=== PATIENT | female | born 1955 | race Caucasian/White ===

== ENCOUNTER 2019-07-03 15:47 | Emergency (ER) | payer OTHER, SELFPAY ==
[2019-07-03 15:49] VITALS: BP 131/67; PULSE 77; RESP 20; TEMP 36.2; O2SAT 100
--- NOTE | 2019-07-03 16:31 | ED.URI ---
HPI - URI/Sore Throat General Chief Complaint: Upper Respiratory Infection Stated Complaint: UPPER RESP SYMPTOMS Time Seen by Provider: 07/03/19 16:31 Source: patient and RN notes reviewed Mode of arrival: other Limitations: no limitations History of Present Illness HPI Narrative: Pt is a 63 y/o female who presents to the ED with c/o a cough that began 4 days ago (06/29/19). Pt went to urgent care yesterday and was prescribed Flonase and Amoxicillin, but she states the medication makes her nauseous and gives her diarrhea. Pt denies being tested for the flu while at urgent care. Pt also reports body aches, fever, and sinus drainage, but denies vomiting. MD elicited complaint: cough Pertinent past history: COPD Onset (ago): day(s) (4) Consistency: constant Able to tolerate fluids by mouth: Yes Relieving factors: nothing Associated symptoms: fever, myalgias and other (sinus drainage) Related Data Allergies Allergy/AdvReac Type Severity Reaction Status Date / Time No Known Allergies Allergy Mild Verified 03/03/10 15:25 Review of Systems Review of Systems: All systems reviewed & are unremarkable except as noted in HPI and below Constitutional: Constitutional: Reports fever(s) ENT: Reports other (sinus drainage) Respiratory: Respiratory: Reports cough Gastrointestinal: Gastrointestinal: Denies vomiting Musculoskeletal: Musculoskeletal: Reports myalgias PMFSH Past Medical History Medical History (Updated 07/03/19 @ 16:50 by Marnie Clay MD) COPD (chronic obstructive pulmonary disease) Surgical History Surgical History (Updated 07/03/19 @ 16:35 by Nenita Peter) History of hysterectomy Social History Social History (Updated 07/03/19 @ 16:35 by Nenita Peter) Smoking packs per day: 1 Smoking cigarettes per day: 20.0 Smoking status: Current every day smoker Tobacco type: cigarettes Exam Narrative: Exam Narrative: GENERAL: Well-appearing, well-nourished, and in no acute distress. HEAD: Normocephalic, atraumatic EYES: PERRLA and EOMI, conjunctiva clear without discharge EARS: TM's clear bilaterally without erythema or dullness NOSE: Nares clear, no rhinorrhea or epistaxis THROAT:Mucous membranes moist, Oropharynx normal without erythema, exudate, peritonsillar swelling or fluctuance NECK: Supple, without lymphadenopathy or mass RESPIRATORY: No respiratory distress, Airway patent, Respirations non-labored, Clear to auscultation without rales, rhonchi or wheeze HEART: Regular rate and rhythm. No murmur heard. Normal peripheral pulses. ABDOMEN: Soft, nontender, nondistended, normal active bowel sounds. No masses. No rebound or guarding, No organomegaly. EXTREMITIES: No edema, normal strength with full range of motion. SKIN: Warm, dry, normal color without rash NEURO: Alert and oriented x3. CN 2-12 grossly intact. No focal deficits. PSYCH: Normal mood and affect. Course Course Emergency Course: Patient presented with 5 days of flu symptoms. I discussed that she has the flu and she does not need antibiotics. She understands that it is symptomatic treatment. I discussed treatment with tamiflu. Vital Signs Vital signs: Vital Signs Temperature 97.2 F L 07/03/19 15:49 Pulse Rate 77 07/03/19 15:49 Respiratory Rate 20 07/03/19 15:49 Blood Pressure 131/67 07/03/19 15:49 Pulse Oximetry 100 07/03/19 15:49 Temperature 97.2 F L 07/03/19 15:49 Pulse Rate 77 07/03/19 15:49 Respiratory Rate 20 07/03/19 15:49 Blood Pressure 131/67 07/03/19 15:49 Pulse Oximetry 100 07/03/19 15:49 MDM - URI/Sore Throat Lab Data Labs: Influenza A Screen Positive Reference Range: Negative Influenza B Screen Negative Reference Range: Negative Discharge Plan Discharge Clinical Impression: Influenza Patient Disposition: Home, Self-Care Condition: Stable Instructions: Influenza (ED), Viral Syndrome (ED)
== END 2019-07-03 17:10 | disposition home or self-care (01) ==
PROVIDERS: Emergency Provider General Practice; PCP Internal Medicine
DX: J10.1 Influenza due to other identified influenza virus with other respiratory manifestations (principal); F17.210 Nicotine dependence, cigarettes, uncomplicated; J44.9 Chronic obstructive pulmonary disease, unspecified
CPT/HCPCS: 87804; 99283

== ENCOUNTER 2020-02-10 14:36 | Emergency (ER) | payer OTHER, SELFPAY ==
[2020-02-10] VITALS (30 sets, daily range): BP systolic 136–167; BP diastolic 48–91; PULSE 63–80; RESP 17–27; TEMP 37.2; O2SAT 94–100
--- NOTE | ~2020-02-10 | XR_ITS ---
EXAMINATION: XR chest 2V DATE: 02/10/2020 15:16 INDICATION: Chest pain and shortness of breath TECHNIQUE: PA and lateral views of the chest are obtained. COMPARISON: None available FINDINGS: The lungs are free of acute opacities. There is no pleural effusion or pneumothorax. The ca rdiomediastinal silhouette is normal. There is moderate thoracic spondylosis. IMPRESSION: 1. No acute cardiopulmonary abnormality. Reviewed, dictated and finalized at location A.
--- NOTE | 2020-02-10 14:47 | ECG_ITS ---
Measurements Intervals [place] Rate: 78 P: 40 VA: 174 QRS: 15 QRSD: 91 T: 53 QT: 370 QTc: 422 Interpretive Statements SINUS RHYTHM NORMAL ECG Electronically Signed On 02-10-2020 20:05:33 CDT by Cody Armstrong D.O.
[2020-02-10 14:55] LABS: Basophils Percent Auto 0.2 % (0.2-1.2); Eosinophils Absolute Auto 0.2 K/mm3 (0-0.3); Hematocrit 42.4 % (37.0-47.0); Immature Granulocyte Absolute 0.03 K/mm3 (0.00-0.031); Immature Granulocyte Percent A 0.3 % (0-0.5); Lymphocytes Absolute Auto 3.91 K/mm3 (0.9-3.2); Lymphocytes Percent Auto 35.7 % (18.3-44.2); Mean Corpuscular Hemoglobin 29.5 pg (26-34); Mean Corpuscular Volume 89.5 fl (80-100); Mean Platelet Volume 11.4 fl (7.4-10.4); Monocytes Absolute Auto 0.8 K/mm3 (0.1-0.6); Neutrophils Percent Auto 54.8 % (45.5-73.1); Platelet Count Result 236 k/mm3 (150-375); Red Blood Count 4.74 M/mm3 (4.2-5.4)
[2020-02-10 15:05] LABS: Partial Thromboplastin Time 27.7 SECONDS (22.3-36.8); Prothrombin Time 12.4 Seconds (11.1-14.7)
[2020-02-10 15:07] LABS: Anion Gap 7 mmol/L (8-16); Blood Urea Nitrogen 17 mg/dL (7-17); Calcium 9.4 mg/dL (8.4-10.2); Carbon Dioxide 27 mmol/L (22-30); Chloride 108 mmol/L (98-107); Estimated CRCL calculation 64 ml/min; Estimated Glomerular Filt Rate 56; Glucose 107 mg/dL (65-105); Potassium 4.3 mmol/L (3.4-5.0); Sodium 142 mmol/L (137-145)
[2020-02-10] MEDS: ASPIRIN 81 MG CHEWABLE TABLET 324 MG PO (15:15)
--- NOTE | 2020-02-10 15:15 | PC.NURSE ---
MIGEL Shirley at bedside for assessment.
[2020-02-10 15:19] LABS: Troponin I < 0.012 ng/mL (0.000-0.034)
--- NOTE | 2020-02-10 15:21 | ED.CHESTPAIN ---
HPI - Chest Pain General Chief Complaint: Chest Pain <RICHMOND Ron Last Filed: 02/10/20 18:55> Stated Complaint: Chest Pain <RICHMOND Ron Last Filed: 02/10/20 18:55> Time Seen by Provider: 02/10/20 14:44 <RICHMOND Ron Last Filed: 02/10/20 18:55> Source: patient <RICHMOND Ron Last Filed: 02/10/20 18:55> Mode of arrival: ambulatory <RICHMOND Ron Last Filed: 02/10/20 18:55> Limitations: no limitations <RICHMOND Ron Last Filed: 02/10/20 18:55> History of Present Illness HPI narrative: This is a 64 year old female that presents to the ER for intermittent left sided chest pain since this morning. Reports they started when she was resting. The pains are intermittent and sharp. Does report some relief with ibuprofen. Reports lower extremity edema as well which has been ongoing for some time. Denies fever, cough, shortness of breath. <RICHMOND Ron Last Filed: 02/10/20 18:55> Related Data Home Medications: Home Medications Medication Instructions Recorded Confirmed albuterol sulfate 1 inh INHALATION QID PRN 02/10/20 amlodipine 5 mg PO DAILY 02/10/20 cyclobenzaprine 10 mg PO TID PRN 02/10/20 fluticasone propionate [Flonase 1 spray INTRANASAL DAILY 02/10/20 Allergy Relief] lisinopril 40 mg PO DAILY 02/10/20 meloxicam 7.5 mg PO DAILY 02/10/20 <RICHMOND Ron Last Filed: 02/10/20 18:55> Allergies/Adverse Reactions: Allergies Allergy/AdvReac Type Severity Reaction Status Date / Time No Known Allergies Allergy Mild Verified 03/03/10 15:25 <RICHMOND Ron Last Filed: 02/10/20 18:55> Review of Systems Review of Systems: Narrative: CONSTITUTIONAL: Denies fever CARDIOVASCULAR: Reports chest pain, and edema. RESPIRATORY: Denies cough or dyspnea. <Sharron Christian PA-C - Last Filed: 02/10/20 18:55> All systems reviewed & are unremarkable except as noted in HPI and below <Sharron Christian PA-C - Last Filed: 02/10/20 18:55> [facility] Past Medical History Medical History: Medical History (Updated 02/11/20 @ 00:00 by Arlyn Guallpa) COPD (chronic obstructive pulmonary disease) History of hypertension <Sharron Christian PA-C - Last Filed: 02/10/20 18:55> Surgical History Surgical History: Surgical History (Updated 07/03/19 @ 16:35 by Nenita Peter) History of hysterectomy <RICHMOND Ron Last Filed: 02/10/20 18:55> Social History Social History: Social History (Updated 07/03/19 @ 16:35 by Nenita Peter) Smoking packs per day: 1 Smoking cigarettes per day: 20.0 Smoking status: Current every day smoker Tobacco type: cigarettes Gender identity (if verbalized by the patient): Female <Sharron Christian PA-C - Last Filed: 02/10/20 18:55> Exam Narrative: Exam Narrative: GENERAL: Well-appearing, obese, and in no acute distress. HEAD: Normocephalic, atraumatic. EYES: EOMI. NECK: Supple. No adenopathy or masses. No carotid bruits or JVD CHEST: Clear to auscultation. No respiratory distress. No wheezes rales or rhonchi. Tender to palpation of the left upper chest wall HEART: Regular rate and rhythm. No murmur heard. Normal peripheral pulses. EXTREMITIES: Normal range of motion. No edema. Normal DP pulses SKIN: Warm, dry, no rash. NEURO: No focal deficits. Alert and oriented x3. PSYCH: Normal mood and affect <RICHMOND Ron Last Filed: 02/10/20 18:55> Course Vital Signs Vital signs: Vital Signs Temperature 37.2 C 02/10/20 14:40 Pulse Rate 80 02/10/20 14:40 Respiratory Rate 20 02/10/20 14:40 Blood Pressure 167/90 H 02/10/20 14:40 Pulse Oximetry 100 02/10/20 14:40 Temperature 37.2 C 02/10/20 14:40 Pulse Rate 74 02/10/20 19:13 Respiratory Rate 18 02/10/20 19:13 Blood Pressure 150/64 H 02/10/20 19:13 Pulse Oximetry 97 02/10/20 19:13 <Sharron Christian PA-C - Last Filed: 0
[2020-02-10 15:36] LABS: D Dimer 0.48 ug/mL (<0.48)
[2020-02-10 18:22] LABS: Troponin I < 0.012 ng/mL (0.000-0.034)
== END 2020-02-10 19:14 | disposition home or self-care (01) ==
PROVIDERS: Physician Assistant; Emergency Provider Emergency Medicine; PCP Internal Medicine
DX: R07.9 Chest pain, unspecified (principal); J44.9 Chronic obstructive pulmonary disease, unspecified; I10 Essential (primary) hypertension; F17.210 Nicotine dependence, cigarettes, uncomplicated
CPT/HCPCS: 36415; 71046; 80048; 84484; 85025; 85380; 85610; 85730; 93005; 99284; A9270

== ENCOUNTER 2020-04-05 11:52 | Emergency (ER) | payer OTHER, SELFPAY ==
--- NOTE | ~2020-04-05 | CT_ITS ---
EXAMINATION: CT abdomen pelvis w con EXAM DATE: 04/05/2020 13:28 INDICATION: Low abdominal pain. TECHNIQUE: Spiral CT of the abdomen and pelvis was performed following intravenous injection of 100 m L Omnipaque 350. Axial, coronal and sagittal images were reviewed. The dose-length product (DLP) fo r this examination was 1292.12 mGy-cm. The exposure was tailored according to patient size (auto mA exposure control), and iterative reconstruction (ASIR) was used as additional dose reduction techniqu e. There is no prior study for comparison. FINDINGS: The liver, spleen, adrenal glands and pancreas are unremarkable. There are gallstones with in an otherwise unremarkable gallbladder. No evidence of obstructive biliary disease. Portal and sp lenic veins are patent. Kidneys enhance symmetrically. There is no hydronephrosis. The uterus is not identified and has likely been surgically resected. There is a 4.6 cm left renal cyst. The bladd er is unremarkable. There is no retroperitoneal or pelvic lymphadenopathy. The appendix is normal. The stomach and small bowel are unremarkable. There is expected amount of c olonic stool. No free intraperitoneal gas. The heart is normal in size. There are no pericardial or pleural effusions. The lung bases are unremarkable. The bones are unremarkable. IMPRESSION: 1. No acute intra-abdominal findings. 2. Cholelithiasis. Otherwise unremarkable gallbladder. Reviewed, dictated and finalized at location A. [employer]
[2020-04-05 12:03] VITALS: BP 170/72; PULSE 89; RESP 18; TEMP 36.3; O2SAT 94
[2020-04-05 12:33] LABS: Basophils Percent Auto 0.4 % (0.2-1.2); Eosinophils Absolute Auto 0.3 K/mm3 (0-0.3); Eosinophils Percent Auto 2.4 % (0-4.4); Hematocrit 41.8 % (37.0-47.0); Hemoglobin 13.9 g/dL (12.0-15.0); Immature Granulocyte Absolute 0.02 K/mm3 (0.00-0.031); Immature Granulocyte Percent A 0.2 % (0-0.5); Lymphocytes Absolute Auto 4.09 K/mm3 (0.9-3.2); Lymphocytes Percent Auto 36.1 % (18.3-44.2); Mean Corpuscular HGB Conc 33.3 g/dl (32-36); Mean Corpuscular Hemoglobin 29.3 pg (26-34); Mean Platelet Volume 11.6 fl (7.4-10.4); Monocytes Absolute Auto 0.7 K/mm3 (0.1-0.6); Monocytes Percent Auto 6.3 % (2.6-8.5); Neutrophils Absolute Auto 6.2 K/mm3 (1.3-6.7); Neutrophils Percent Auto 54.6 % (45.5-73.1); Platelet Count Result 259 k/mm3 (150-375); Red Blood Count 4.75 M/mm3 (4.2-5.4); White Blood Count 11.3 K/mm3 (4.5-10.0)
[2020-04-05 12:39] LABS: Add Urine Microscopic? YES; Appearance Urine Clear (Clear); Bilirubin Urine Negative (Negative); Blood Urine 1+ (Negative); Color Urine Straw (Yellow); Glucose Urine UA Negative (Negative); Ketones Urine Negative (Negative); Leukocyte Esterase Ur Negative LEU/UL (Negative); Mucus Urine Rare /lpf; Nitrate Urine Negative (Negative); Protein Urine Negative (Negative); RBC Urine 0-2 /hpf (0-2); Specific Grav Ur 1.013 (1.001-1.035); Squamous Epithelial Cell Urine Moderate /hpf (Few); Urobilinogen Urine Negative mg/dL (<2.0); WBC Urine 0-3 /hpf
[2020-04-05 12:49] LABS: Anion Gap 5 mmol/L (8-16); Blood Urea Nitrogen 19 mg/dL (7-17); Calcium 9.5 mg/dL (8.4-10.2); Carbon Dioxide 32 mmol/L (22-30); Chloride 106 mmol/L (98-107); Estimated CRCL calculation 61 ml/min; Estimated Glomerular Filt Rate 56; Glucose 110 mg/dL (65-105); Potassium 3.8 mmol/L (3.4-5.0); Sodium 143 mmol/L (137-145)
--- NOTE | 2020-04-05 14:10 | ED.GENADULT ---
HPI - General Adult General Chief complaint: Abdominal Pain Stated complaint: kidney infection Time Seen by Provider: 04/05/20 12:39 History of Present Illness HPI narrative: Patient is a 64-year-old female who presents ER with bilateral flank pain. Ongoing for last week. Sharp and achy and last for less than a minute and occurs intermittently. It is not at the CVA region but more lateral towards the posterior mid axillary line bilaterally inferior to the ribs. Denies urinary symptoms but has been started on antibiotics for possible UTI earlier in the week. Patient also reports some lower abdominal cramping without diarrhea/nausea/vomiting. No sweats or chills. Has not found any alleviating factors. Denies injury. Related Data Home Medications Medication Instructions Recorded Confirmed albuterol sulfate 1 inh INHALATION QID PRN 02/10/20 04/05/20 amlodipine 5 mg PO DAILY 02/10/20 04/05/20 fluticasone propionate [Flonase 1 spray INTRANASAL DAILY 02/10/20 04/05/20 Allergy Relief] lisinopril 40 mg PO DAILY 02/10/20 04/05/20 meloxicam 7.5 mg PO DAILY 02/10/20 04/05/20 Allergies Allergy/AdvReac Type Severity Reaction Status Date / Time No Known Allergies Allergy Mild Verified 04/05/20 12:16 Review of Systems Review of Systems: All systems reviewed & are unremarkable except as noted in HPI and below Constitutional: Constitutional: Denies chills, Denies fever(s) and Denies weakness ENT: Denies nasal congestion and Denies sore throat Gastrointestinal: Gastrointestinal: Reports abdominal pain, Denies diarrhea, Denies nausea and Denies vomiting Genitourinary: Genitourinary: Denies nocturia, Denies dysuria and Reports flank pain [facility] Past Medical History Medical History (Updated 04/05/20 @ 14:14 by Mina Corona MD) COPD (chronic obstructive pulmonary disease) History of hypertension Surgical History Surgical History (Updated 07/03/19 @ 16:35 by Nenita Peter) History of hysterectomy Social History Social History (Updated 07/03/19 @ 16:35 by Nenita Peter) Smoking packs per day: 1 Smoking cigarettes per day: 20.0 Smoking status: Current every day smoker Tobacco type: cigarettes Gender identity (if verbalized by the patient): Female Exam Narrative: Exam Narrative: GENERAL: Well-appearing, well-nourished, and in no acute distress. HEAD: Normocephalic, atraumatic. ENT: Mucous membranes moist. CHEST: Clear to auscultation. No respiratory distress. HEART: Regular rate and rhythm. Normal peripheral pulses. ABDOMEN: Soft, mild bilateral lower lower quadrant abdominal pain without guarding, nondistended. No CVA tenderness Back: No midline tenderness of thoracic or lumbar spine nor is or tenderness of the paraspinal musculature. EXTREMITIES: Normal range of motion. No edema. SKIN: Warm, dry, no rash. NEURO: Alert and oriented x3. Course Course Emergency Course: Unremarkable evaluation. We will treat his muscle cramps/aches. Discharge home. Vital Signs Vital signs: Vital Signs Temperature 97.4 F L 04/05/20 12:03 Pulse Rate 89 04/05/20 12:03 Respiratory Rate 18 04/05/20 12:03 Blood Pressure 170/72 H 04/05/20 12:03 Pulse Oximetry 94 04/05/20 12:03 Temperature 97.4 F L 04/05/20 12:03 Pulse Rate 89 04/05/20 12:03 Respiratory Rate 18 04/05/20 12:03 Blood Pressure 170/72 H 04/05/20 12:03 Pulse Oximetry 94 04/05/20 12:03 Medical Decision Making Vital Signs Vital Signs: Vital Signs Temperature 97.4 F L 04/05/20 12:03 Pulse Rate 89 04/05/20 12:03 Respiratory Rate 18 04/05/20 12:03 Blood Pressure 170/72 H 04/05/20 12:03 Pulse Oximetry 94 04/05/20 12:03 Temperature 97.4 F L 04/05/20 12:03 Pulse Rate 89 04/05/20 12:03 Respiratory Rate 18 04/05/20 12:03 Blood Pressure 170/72 H 04/05/20 12:03 Pulse Oximetry 94 04/05/20 12:03 Lab Data Result diagrams: 04/05/20 12:24 04/05/20 12:24
[2020-04-05 14:58] VITALS: BP 162/88; PULSE 74; RESP 20; O2SAT 98
== END 2020-04-05 15:02 | disposition home or self-care (01) ==
PROVIDERS: Emergency Provider Emergency Medicine; PCP Internal Medicine
DX: R25.2 Cramp and spasm (principal); K80.20 Calculus of gallbladder without cholecystitis without obstruction; J44.9 Chronic obstructive pulmonary disease, unspecified; I10 Essential (primary) hypertension; F17.210 Nicotine dependence, cigarettes, uncomplicated
CPT/HCPCS: 36415; 74177; 80048; 81001; 85025; 99284; Q9967

== ENCOUNTER 2024-08-22 09:21 | Outpatient (CLI) | payer MEDICARE, MEDICAID, SELFPAY ==
--- OUTSIDE RECORDS SUMMARY | 2024-08-22 10:20 | XMS_ITS | Data Portability ---
Author Organization [facility], Main Office Address [address] [place] [address] Care Team Providers Care Table Saw Operator Name Role Phone CARLOZ MURPHY Primary Care Provider [phone] CARLOZ MURPHY Referring Provider DOLORES LINK [employer]aker Resort ADITI HALLMAN Wire Mill Rover Assessment Encounter Date Assessment Date Assessment LastModified by Organization Details LastModified Time 02/07/2024 02/07/2024 07/27/2022: CBC/TSH/Lipids: WNL CMP: BUN 23, GFR 48, Gluc 110 01/26/2023: A1C 5.7 Gluc 103, BUN 29, ALT 68 Urine microalb 37.3 06/07/2023: Hepatitis panel: Neg BUN 33, GFR 50, ALT 39: Dr Rosado IJ WBC 11.9 10/03/2023: Gluc 107 A1C 5.7, BUN 21, Cr 48 CBC: WNL Urine micor alb 17.2 02/01/2024: Urine micro alb 65.9 Gluc 104, Cr 1.29, GFR 41 [place] Not available 02/02/2024 18:34:53 03/07/2024 03/07/2024 Assessment: Nicotine smoke: 1/2 ppd since 1970 (quit 10 years in between) = 22 pack years 5 mm MIGUEL ANGEL nodule Mild ACO Plan: The following were reviewed and explained to the patient: Chest CT 02/21/23 5 mm MIGUEL ANGEL nodule Chest CT 01/26/24 5 mm MIGUEL ANGEL nodule Lab data 07/26/23 equivocal Coccidioides IgG PFT 07/26/23 FEV1 1.92 L (81%), BD 390 mL = 26% Nicotine cessation counseling provided. [place] for quitting nicotine include getting ready, getting support and encouragement, learning new skills and behaviors and being prepared to handle slips. Tips for dealing with cravings provided. Prevention of subsequent illnesses from nicotine addiction discussed. Comorbidities include but are not limited to hypertension, cerebrovascular disease, coronary heart disease, congestive heart failure, hyperlipidemia, COPD/asthma, peptic ulcer disease, esophagitis/gastri tis, and osteoporosis. Therapy options offered include: Quitting by total abstinence Receiving nicotine replacement therapy Undergoing hypnosis Filling a bupropion or varenicline prescription Enrolling in Quit For Life program Registering at [email or web address].swabr Making a call to 7-648-VDAJ-NOW ( ). A strong, clear, personalized message was given to the patient to quit smoking. The patient was urged to set a quit date. We discussed patient's barriers to quitting and I will be of assistance when patient is ready to quit. I encouraged patient to inform friends and family of plans to quit with a request for support. I encouraged the patient to remove all cigarettes from the environment. We reviewed any previous quit attempts and lessons learned from them. I encouraged total abstinence from smoking and advised the patient that drinking alcohol and/or associating with other smokers are associated with failure or relapse. Patient can enroll in [facility]'s smoking cessation class through Anila Mart RN at . Enrollment is free and classes are held every tuesday of the month from 1:30 pm to 2:30 pm at the conference room next to the cafeteria on the ground floor. Patient quit by total abstinence from [id number]. Differential diagnoses for pulmonary nodule: 1. malignant tumor 2. benign tumor 3. inflammatory processes 4. infectious process (viral, atypical bacterial, fungal, atypical mycobacterial) The Fleischner Society pulmonary nodule recommendations below pertain to the follow-up and management of indeterminate pulmonary nodules detected incidentally on CT and are published by the Fleischner Society. The guideline does not apply to lung cancer screening, patients younger than 35 years, or patients with a history of primary cancer or immunosuppression. These recommendations reflect the 2017 revision 4, which supersedes prior versions published in 2005 and 2013. Single solid nodule <6 mm (<100 mm3) *low-risk patients: no routine follow-up required *high-risk patients: optional CT at 12 months (particularly with suspicious nodule morphology and/or upper lobe location) Single solid nodule 6-8 mm (100-250 mm3) *low-risk patients: CT at 6-12 months, then consider CT at 18-24 months *high-risk patients: CT at 6-12 months, then CT at 18-24 months Single solid nodule >8 mm (>250 mm3) *low-risk and high-risk patients: consider CT at 3 months, PET/CT, or tissue sampling Repeat chest CT one week before return. General information on bronchial asthma was covered. Educational video was shown. Peak flow meter usage instructed. Patient's personal best peak flow today is 240 L/min. Patient will monitor peak flow daily at a set time and again when symptoms of chest tightness, cough, dyspnea or wheezing occur. Patient will bring peak flow record to subsequent visits. The color of a traffic light will guide the patient's use of asthma medications: (1) Green means Go Zone. Peak flow: above 80% of personal best. Symptoms: Breathing is good, no cough or wheeze present, patient sleeps through the night and can work and play. Plan: Patient will continue the use of preventative medicine. (2) Yellow means Caution Zone. Peak flow: between 50-80% of personal best. Symptoms: Presence of first signs of a cold, exposure to known trigger, mild wheeze, tight chest and coughing especially night. Plan: Patient will add quick-relief medicine to preventative medicine. (3) Red means Danger Zone. Peak flow: below 50% of personal best. Symptoms: Asthma is getting worse quickly and medicine is not helping, breathing is hard and fast, nose opens widely when breathing, ribs showing when breathing, and patient cannot speak in full sentences. Plan: Patient will get help from a physician immediately. Continue albuterol HFA as needed. The patient does not know how to accurately administer the inhaler. Today, the patient was shown how to take this medication. The proper technique for delivering this medication was instructed. The patient expressed a clear understanding and demonstrated back how to use this medication. Without the proper technique, the patient will not reap the benefits of the treatment as the contents of the inhaler will not reach the lower airways as intended to be. Adherence to therapy is advocated. Nonadherence may lead to treatment failure, further progression of the condition, and other complications. Hospitals admissions are often the result of individuals not taking prescription medications accurately. Alternatively, greater adherence to medication regimens have shown to lower rates of hospitalization and decrease total medical costs in patients with chronic medical conditions. Advocated influenza vaccination annually and pneumonia vaccination LAMBERTO. Advocated weight loss through diet and exercise. Patient's ideal body weight according to height and gender is up to 130 lbs. Encouraged patient to adjust caloric intake to maintain/achieve ideal body weight, emphasizing on fruits, vegetables, whole grains, and fat-free or low-fat products. These include lean meats, poultry, fish, beans, eggs, and nuts and foods that are low in saturated fats, trans-fats, cholesterol, salt (sodium), and glycemic index. Stressed the importance of regular exercise up to the patient's capacity limits. In this case, we recommend 20 min daily walking, 2 days a week of resistance training. Patient to monitor BP daily and bring records to PCP for further management. Follow-up: 1 year, August 2024 [email or web address] Not available 03/07/2024 11:49:04 06/21/2024 06/21/2024 07/27/2022: CBC/TSH/Lipids: WNL CMP: BUN 23, GFR 48, Gluc 110 01/26/2023: A1C 5.7 Gluc 103, BUN 29, ALT 68 Urine microalb 37.3 06/07/2023: Hepatitis panel: Neg BUN 33, GFR 50, ALT 39: Dr Rosado IJ WBC 11.9 10/03/2023: Gluc 107 A1C 5.7, BUN 21, Cr 48 CBC: WNL Urine micor alb 17.2 02/01/2024: Urine micro alb 65.9 Gluc 104, Cr 1.29, GFR 41 06/15/2024: A1C 5.8H [place] Not available 06/21/2024 10:57:24 07/10/2024 07/10/2024 07/27/2022: CBC/TSH/Lipids: WNL CMP: BUN 23, GFR 48, Gluc 110 01/26/2023: A1C 5.7 Gluc 103, BUN 29, ALT 68 Urine microalb 37.3 06/07/2023: Hepatitis panel: Neg BUN 33, GFR 50, ALT 39: Dr Alonzo HAEYS WBC 11.9 10/03/2023: Gluc 107 A1C 5.7, BUN 21, Cr 48 CBC: WNL Urine micor alb 17.2 02/01/2024: Urine micro alb 65.9 Gluc 104, Cr 1.29, GFR 41 06/15/2024: A1C 5.8H 06/27/2024: [facility] Gluc 101, BUN 21, Cr 1.26, GFR 42 45 minutes spent with the patient, labs and d/c summary noted from [facility] [email or web address] Not available 07/10/2024 12:42:57 Plan of Treatment Reminders Order Date Submit Date Provider Last Modified By Organization Details Last Modified Time Details Appointments Any 15 2024 11:00A Cathryn chang MD Not available Not available Not available New Patient 15 2024 01:30P Cathryn Metz MD Not available Not available Not available Lab glycohem oglobin, total, blood [address] (Lab), [address] [place], [address], 07/10/2024 12:50:30 microalb umin, urine [address] (Lab), [address] [place], [address], 07/10/2024 12:50:31 vitamin D, 25-hydro xy, total, serum [address] (Lab), [address] [place], [address], 07/10/2024 12:50:29 lipid panel, serum [address] (Lab), [address] [place], [address], 07/10/2024 12:50:29 CBC w/ auto diff [address] (Lab), [address] [place], [address], 07/10/2024 12:50:29 TSH, serum or plasma [address] (Lab), [address] [place], [address], 07/10/2024 12:50:30 CMP, serum or plasma [address] (Lab), [address] [place], [address], 07/10/2024 12:50:30 glycohem oglobin, total, blood 2024 025 [facility] (Lab), [address] [place], [address], 06/21/2024 18:20:35 microalb umin, urine 2024 025 [facility] (Lab), [address] [place], [address], 07/27/2024 16:54:15 vitamin D, 25-hydro xy, total, serum 2024 025 [facility] (Lab), [address] [place], [address], 06/21/2024 18:20:36 lipid panel, serum 2024 025 [facility] (Lab), [address] [place], [address], 06/21/2024 18:20:36 CBC w/ auto diff 2024 025 [facility] (Lab), [address] [place], [address], 06/21/2024 18:20:35 TSH, serum or plasma 2024 025 [facility] (Lab), [address] [place], [address], 06/21/2024 18:20:35 CMP, serum or plasma 2024 025 [facility] (Lab), [address] [place], [address], 06/21/2024 18:20:36 glycohem oglobin, total, blood [address] (Lab), [address] [place], [address], 08/08/2024 08:39:02 microalb umin, urine [address] (Lab), [address] [place], [address], 08/08/2024 08:39:03 lipid panel, serum [address] (Lab), [address] [place], [address], 08/08/2024 08:39:02 CBC w/ auto diff [address] (Lab), [address] [place], [address], 08/08/2024 08:39:02 TSH, serum or plasma [address] (Lab), [address] [place], [address], 08/08/2024 08:39:02 CMP, serum or plasma [address] (Lab), [address] [place], [address], 08/08/2024 08:39:02 vitamin D, 25-hydro xy, total, serum 2023 024 [email or web address] [facility] ([facility]), [address], [place], [address], 08/08/2024 08:39:02 Referral nephrolo gist referral - Please call patient to schedule an appointm ent. Thank you. 2024 025 ZEN Rosado MD (Nephrology, [address], [address], [place], [address], 07/11/2024 09:35:[address] referral - Please call patient to schedule an appointm ent. Thank you. 2024 025 CARLENE Pino DPM, [address] [facility], [address], [place], [address], 07/11/2024 09:30:46 cardiolo gist referral - Please call patient to schedule an appointm ent. Thank you. 2024 025 ZEN Hallman MD, [address] [facility], [address], [place], [address], 07/11/2024 10:25:[address] referral - Please call patient to schedule an appointm ent. Thank you. 2024 025 [email or web address] Amirah Metz MD, [address], [address], [place], [address], 07/11/2024 09:21:[address] referral - Please call patient to schedule an appointm ent. Thank you. 2024 025 [email or web address] Pino DPM, [address] [facility], [address], [place], [address], 08/21/2024 08:51:56 cardiolo gist referral - Please call patient to schedule an appointm ent. Thank you. 2024 025 Aditi Hallman MD, [address], [address], [place], [address], 08/08/2024 08:55:[address] referral - Please call patient to schedule an appointm ent. Thank you. 2024 025 [email or web address] Amirah Metz MD, [address], [address], [place], [address], 08/14/2024 08:42:[address] referral - Please call patient to schedule . 2023 024 [email or web address] Darek Pino DPM, [address], [address], [place], [address], 03/13/2024 13:51:39 nephrolo gist referral 2023 024 [email or web address] Ricky Rosado MD (Nephrology, [address], [address], [place], [address], 02/07/2024 12:41:46 cardiolo gist referral 2023 024 [email or web address] Aditi Hallman MD, [address], [address], [place], [address], 02/07/2024 12:41:47 Procedures colonosc opy screenin g (PROC) - Please call patient to schedule an appointm ent. Thank you. 2024 025 [email or web address] Amirah Metz MD, [address], [address], [place], [address], 07/11/2024 09:23:33 colonosc opy screenin g (PROC) - Please call patient to schedule an appointm ent. Thank you. 2024 025 [email or web address] Amirah Metz MD, [address], [address], [place], [address], 08/13/2024 09:14:28 colonosc opy screenin g (PROC) - Please call patient to schedule . 2023 [email or web address] Metz MD, [address] [facility], [address], [place], [address], 03/13/2024 13:51:15 Surgeries None recorded . Imaging MAMMO, screenin g, digital, bilatera l [address] ([facility]), [address] [place], [address], 02/07/2024 12:38:43 DEXA, axial skeleton [address] ([facility]), [address] [place], [address], 08/08/2024 08:48:14 Medication Orders cycloben zaprine 10 mg tablet 2023 024 [id number], [address], [place], [place], [id number], 04/03/2024 14:54:51 meloxica m 7.5 mg tablet [email or web address] [id number], [address], [place], [place], [id number], 06/21/2024 10:21:09 albutero l sulfate HFA 90 mcg/actu ation aerosol inhaler 2023 024 [facility] #[id number], [address], [place], [place], [id number], 03/07/2024 11:49:38 Patient TargetsNo targets recorded. Patient Instructions Encounter Date Encounter Id Patient Instructions Last Modified By Organization Details Last Modified Time 02/07/2024 [id number] dementia rating scale-2* [email or web address] Not available 02/15/2024 12:13:02 alcohol misuse* [email or web address] Not availabl e 02/15/2024 12:12:47 depression screening* Not available 02/15/2024 12:12:40 multi-dimensiona l health assessment questionnaire* [email or web address] Not available 02/15/2024 12:12:54 advance directives: care instructions [email or web address] Not available 02/07/2024 12:19:28 advance care planning: care instructions [email or web address] Not available 02/07/2024 12:19:29 [place] Advance Directives [email or web address] Not available 02/07/2024 12:19:28 03/07/2024 [id number] complete PFT w/ post bronchodilator spirometry* - Please call patient to schedule. SHANEKA [id number] per payor portal, ref #[id number]. [email or web address] Not available 08/15/2024 17:05:50 Reason for Referral Certified Ski Patroller Referral for Ch ronic kidney disease Referring Physician: Carloz Murphy Internal Medicine, Encounter Date: 02/07/2024 Wire Mill Rover Referral for Co ronary arteriosclerosis Referring Physician: Carloz Murphy Internal Medicine, Encounter Date: 02/07/2024 Content Development Manager Referral for Pred iabetes Please call patient to schedule. Referring Physician: Ac Blount Medicine, Encounter Date: 02/07/2024 Wire Mill Rover Referral for Co ronary arteriosclerosis Please call patient to schedule an appointment. Thank you. Referring Physician: Carloz Murphy Internal Medicine, Encounter Date: 06/21/2024 Content Development Manager Referral for Pred iabetes Please call patient to schedule an appointment. Thank you. Referring Physician: Carloz Murphy Internal Medicine, Encounter Date: 06/21/2024 [employer] [place] Referral for Liver enzymes level above reference range Please call patient to schedule an appointment. Thank you. Referring Physician: Ac [facility], Encounter Date: 06/21/2024 Wire Mill Rover Referral for Co ronary arteriosclerosis Please call patient to schedule an appointment. Thank you. Referring Physician: Carloz Murphy Internal Medicine, Encounter Date: 07/10/2024 Content Development Manager Referral for Pred iabetes Please call patient to schedule an appointment. Thank you. Referring Physician: Carloz Murphy Internal Medicine, Encounter Date: 07/10/2024 [employer] [place] Referral for Liver enzymes level above reference range Please call patient to schedule an appointment. Thank you. Referring Physician: Carloz Murphy Internal Medicine, Encounter Date: 07/10/2024 Certified Ski Patroller Referral for Ch ronic kidney disease Please call patient to schedule an appointment. Thank you. Referring Physician: Carloz Murphy Internal Medicine, Encounter Date: 07/10/2024 Results Created Date Observation Date Name Description Value Unit Range Abnormal Flag Note LastModifiedBy Organization Detail LastModifiedTime 02/01/20 24 02/01/2024 CBC/C OMPLE TE BLD COUNT W/DIF F white blood cells 8.6 x10'3 /uL 4.2-10 .8 Not Available [facility] (Lab) [address] [place], [address], 02/01/2024 14:15:32 02/01/20 24 02/01/2024 CBC/C OMPLE TE BLD COUNT W/DIF F red blood cells 4.64 x10'6 /uL 3.80-5 .20 Not Available [facility] (Lab) [address] [place], [address], 02/01/2024 14:15:32 02/01/20 24 02/01/2024 CBC/C OMPLE TE BLD COUNT W/DIF F hemoglobin 13.3 g/dL 12.0-1 5.6 Not Available [facility] (Lab) [address] [place], [address], 02/01/2024 14:15:32 02/01/20 24 02/01/2024 CBC/C OMPLE TE BLD COUNT W/DIF F hematocrit 41.9 % 35.7-4 5.7 Not Available [facility] (Lab) [address] [place], [address], 02/01/2024 14:15:32 02/01/20 24 02/01/2024 CBC/C OMPLE TE BLD COUNT W/DIF F mean red cell volume 90.3 fL 82.0-9 9.0 Not Available [facility] (Lab) [address] [place], [address], 02/01/2024 14:15:32 02/01/20 24 02/01/2024 CBC/C OMPLE TE BLD COUNT W/DIF F mean red cell hemoglobin 28.7 pg 27.0-3 3.0 Not Available [facility] (Lab) [address] [place], [address], 02/01/2024 14:15:32 02/01/20 24 02/01/2024 CBC/C OMPLE TE BLD COUNT W/DIF F mean RBC HGB concentratio n 31.7 g/dL 31.0-3 6.0 Not Available [facility] (Lab) [address] [place], [address], 02/01/2024 14:15:32 02/01/20 24 02/01/2024 CBC/C OMPLE TE BLD COUNT W/DIF F red cell distribution width 13.1 % 11.8-1 5.5 Not Available [facility] (Lab) [address] [place], [address], 02/01/2024 14:15:32 02/01/20 24 02/01/2024 CBC/C OMPLE TE BLD COUNT W/DIF F platelets 194 x10'3 /uL 150-40 0 Not Available [facility] (Lab) [address] [place], [address], 02/01/2024 14:15:32 02/01/20 24 02/01/2024 CBC/C OMPLE TE BLD COUNT W/DIF F mean platelet volume 12.0 fL 9.0-12 .4 Not Available [facility] (Lab) [address] [place], [address], 02/01/2024 14:15:32 02/01/20 24 02/01/2024 CBC/C OMPLE TE BLD COUNT W/DIF F neutrophils 55.8 % 39.0-7 2.0 Not Available [facility] (Lab) [address] [place], [address], 02/01/2024 14:15:32 02/01/20 24 02/01/2024 CBC/C OMPLE TE BLD COUNT W/DIF F lymphocytes 33.6 % 16.0-4 7.0 Not Available [facility] (Lab) [address] [place], [address], 02/01/2024 14:15:32 02/01/20 24 02/01/2024 CBC/C OMPLE TE BLD COUNT W/DIF F monocytes 7.1 % 5.0-12 .0 Not Available [facility] (Lab) [address] [place], [address], 02/01/2024 14:15:32 02/01/20 24 02/01/2024 CBC/C OMPLE TE BLD COUNT W/DIF F eosinophils 2.7 % 1.0-7. 0 Not Available [facility] (Lab) [address] [place], [address], 02/01/2024 14:15:32 02/01/20 24 02/01/2024 CBC/C OMPLE TE BLD COUNT W/DIF F basophils 0.5 % 0.0-2. 0 Not Available [facility] (Lab) [address] [place], [address], 02/01/2024 14:15:32 02/01/20 24 02/01/2024 CBC/C OMPLE TE BLD COUNT W/DIF F immature granulocytes 0.3 % 0.00-0 .50 Not Available [facility] (Lab) [address] [place], [address], 02/01/2024 14:15:32 02/01/20 24 02/01/2024 CBC/C OMPLE TE BLD COUNT W/DIF F neutrophils, absolute count 4.79 x10'3 /uL 1.5-8. 0 Not Available [facility] (Lab) [address] [place], [address], 02/01/2024 14:15:32 02/01/20 24 02/01/2024 CBC/C OMPLE TE BLD COUNT W/DIF F lymphocytes, absolute count 2.89 x10'3 /uL 1.07-3 .43 Not Available [facility] (Lab) [address] [place], [address], 02/01/2024 14:15:32 02/01/20 24 02/01/2024 CBC/C OMPLE TE BLD COUNT W/DIF F monocytes, absolute count 0.61 x10'3 /uL 0.29-0 .99 Not Available [facility] (Lab) [address] [place], [address], 02/01/2024 14:15:32 02/01/20 24 02/01/2024 CBC/C OMPLE TE BLD COUNT W/DIF F eosinophils, absolute count 0.23 x10'3 /uL 0.02-0 .53 Not Available [facility] (Lab) [address] [place], [address], 02/01/2024 14:15:32 02/01/20 24 02/01/2024 CBC/C OMPLE TE BLD COUNT W/DIF F basophils, absolute count 0.04 x10'3 /uL 0.01-0 .08 Not Available [facility] (Lab) [address] [place], [address], 02/01/2024 14:15:32 02/01/20 24 02/01/2024 CBC/C OMPLE TE BLD COUNT W/DIF F immature granulocytes ,absolute 0.03 x10'3 /uL 0.00-0 .05 Not Available [facility] (Lab) [address] [place], [address], 02/01/2024 14:15:32 02/01/20 24 02/01/2024 CBC/C OMPLE TE BLD COUNT W/DIF F nucleated red blood cells 0.0 % -0 Not Available [facility] (Lab) [address] [place], [address], 02/01/2024 14:15:32 02/01/20 24 02/01/2024 CBC/C OMPLE TE BLD COUNT W/DIF F NRBC# 0.00 x10'3 /uL Not Available [facility] (Lab) [address] [place], [address], 02/01/2024 14:15:32 02/01/20 24 02/01/2024 LIPID PANEL cholesterol 108 mg/dL 140-19 9 low NIH LUIS NSUS RECOM MENDA TION FOR ADELA STERO L: ADULT CHILD LOW RISK: <200 <170 BORDE RLINE : <200- 239 ----- HIGH RISK: >240 >200 Not Available [facility] (Lab) [address] [place], [address], 02/01/2024 14:50:38 02/01/2002/01/2024 LIPID PANEL triglyceride s 116 mg/dL 0-150 NIH LUIS NSUS REPOR T RECOM MENDA TION FOR TRIGL YCERI SPRING: ADULT CHILD LOW RISK: <150 ----- BODER LINE: 150-1 99 ----- HIGH RISK: >200 ----- Not Available [facility] (Lab) [address] [place], [address], 02/01/2024 14:50:38 02/01/20 24 02/01/2024 LIPID PANEL HDL cholesterol 62 mg/dL 40- Not Available [facility] (Lab) [address] [place], [address], 02/01/2024 14:50:38 02/01/20 24 02/01/2024 LIPID PANEL LDL cholesterol, calculated 23 mg/dL 0-130 NIH LUIS NSUS REPOR T RECOM MENDA TIONS FOR LDL: ADULT CHILD LOW RISK <130 <110 (OPTI MAL LDL) <100 ----- BORDE RLINE : 130-1 59 ----- HIGH RISK: >160 >130 A TRIGL YCERI DE RESUL T >400 INVAL IDATE S THE CALCU LATIO N FOR LDL FRACT IONAT ION - THE LDL RESUL T WILL NOT BE REPOR EAGLE. Not Available [facility] (Lab) [address] [place], [address], 02/01/2024 14:50:38 02/01/20 24 02/01/2024 COMPR EHENS GUNJAN METAB OLIC PANEL sodium 140 mmol/ L 137-14 5 Not Available [facility] (Lab) [address] [place], [address], 02/01/2024 14:50:48 02/01/20 24 02/01/2024 COMPR EHENS GUNJAN METAB OLIC PANEL potassium 4.2 mmol/ L 3.5-5. 1 Not Available [facility] (Lab) [address] [place], [address], 02/01/2024 14:50:48 02/01/20 24 02/01/2024 COMPR EHENS GUNJAN METAB OLIC PANEL chloride 109 mmol/ L 98-107 high Not Available [facility] (Lab) [address] [place], [address], 02/01/2024 14:50:48 02/01/20 24 02/01/2024 COMPR EHENS GUNJAN METAB OLIC PANEL carbon dioxide 28 mmol/ L 22-30 Not Available [facility] (Lab) [address] [place], [address], 02/01/2024 14:50:48 02/01/20 24 02/01/2024 COMPR EHENS GUNJAN METAB OLIC PANEL anion gap 7.2 mmol/ L 14-22 low Not Available [facility] (Lab) [address] [place], [address], 02/01/2024 14:50:48 02/01/20 24 02/01/2024 COMPR EHENS GUNJAN METAB OLIC PANEL glucose 104 mg/dL 70-99 high Not Available [facility] (Lab) [address] [place], [address], 02/01/2024 14:50:48 02/01/20 24 02/01/2024 COMPR EHENS GUNJAN METAB OLIC PANEL BUN 16 mg/dL 8-19 Not Available [facility] (Lab) [address] [place], [address], 02/01/2024 14:50:48 02/01/20 24 02/01/2024 COMPR EHENS GUNJAN METAB OLIC PANEL creatinine 1.29 mg/dL 0.66-1 .25 high Not Available [facility] (Lab) [address] [place], [address], 02/01/2024 14:50:48 02/01/20 24 02/01/2024 COMPR EHENS GUNJAN METAB OLIC PANEL GFR 41 Refer ence Range : [place] ge GFR Healt hy Adult : >60 mL/mi n/1.7 3 m2 Chron ic Kidne y Disea se: 15-60 mL/mi n/1.7 3 m2 Kidne y Failu re: <15/m L/min /1.73 m2 www.n iddk. nih.g ov The MDRD study equat ion has not been valid ated in child shauna <18 years of age; pregn ant women ; the elder ly >85 years of age; or in some racia l or ethni c subgr oups, such as Hispa nics. Outsi de the valid ated yulissa eters , estim ated GFR is less accur ate, requi ring clini rikki judgm ent on a case- by-ca se basis . Clini rikki inter preta tion for other races and ages must be made by the clini any. The MDRD study equat ion has not been valid ated for the evalu ation of serum creat inine relat ed to nutri precious l statu s or medic ation usage . For perso ns <18 years of age, a pedia tric GFR calcu lator is avail able on the [facility] websi te: https ://manuel w.kid jamaal.o rg/pr ofess ional s/kdo qi/gf r_cal culat or Not Available [facility] (Lab) [address] [place], [address], 02/01/2024 14:50:48 02/01/20 24 02/01/2024 COMPR EHENS GUNJAN METAB OLIC PANEL alkaline phosphatase 64 U/L 38-126 Not Available [facility] (Lab) [address] [place], [address], 02/01/2024 14:50:48 02/01/20 24 02/01/2024 COMPR EHENS GUNJAN METAB OLIC PANEL alanine aminotransfe rase 30 U/L 0-35 Not Available [facility] (Lab) [address] [place], [address], 02/01/2024 14:50:48 02/01/20 24 02/01/2024 COMPR EHENS GUNJAN METAB OLIC PANEL aspartate aminotransfe rase 27 U/L 15-37 Not Available [facility] (Lab) [address] [place], [address], 02/01/2024 14:50:48 02/01/20 24 02/01/2024 COMPR EHENS GUNJAN METAB OLIC PANEL bilirubin, total 0.70 mg/dL 0.20-1 .30 Not Available [facility] (Lab) [address] [place], [address], 02/01/2024 14:50:48 02/01/20 24 02/01/2024 COMPR EHENS GUNJAN METAB OLIC PANEL calcium 9.6 mg/dL 8.4-10 .2 Not Available [facility] (Lab) [address] [place], [address], 02/01/2024 14:50:48 02/01/20 24 02/01/2024 COMPR EHENS GUNJAN METAB OLIC PANEL total protein 6.8 g/dL 6.3-8. 2 Not Available [facility] (Lab) [address] [place], [address], 02/01/2024 14:50:48 02/01/20 24 02/01/2024 COMPR EHENS GUNJAN METAB OLIC PANEL albumin 3.8 g/dL 3.0-4. 4 Not Available [facility] (Lab) [address] [place], [address], 02/01/2024 14:50:48 02/01/20 24 02/01/2024 COMPR EHENS GUNJAN METAB OLIC PANEL globulin 3.0 g/dL 2.6-4. 2 Not Available [facility] (Lab) [address] [place], [address], 02/01/2024 14:50:48 02/01/20 24 02/01/2024 COMPR EHENS GUNJAN METAB OLIC PANEL A/G ratio 1.3 ratio 1.0-2. 0 Not Available [facility] (Lab) [address] [place], [address], 02/01/2024 14:50:48 02/01/20 24 02/01/2024 TSH W/REF KIMI FT4 TSH with reflex free T4 1.540 uIU/m L 0.465- 4.680 Not Available [facility] (Lab) [address] [place], [address], 02/01/2024 15:23:41 02/01/20 24 02/01/2024 MICRO ALBUM IN RANDO M URINE microalbumin , urine 65.9 mg/L 0.0-16 .6 high Not Available [facility] (Lab) [address] [place], [address], 02/01/2024 15:38:08 02/01/20 24 02/01/2024 VITAM IN D 25-HY DROXY vd25oh 48.6 NG/mL 30-100 Vitam in D Statu s: Defic ient: <20 ng/mL Insuf ficie nt: 20-29 ng/mL Suffi cient : 30-10 0 ng/mL Not Available [facility] (Lab) [address] [place], [address], 02/01/2024 16:16:26 02/01/20 24 02/03/2024 HA1C, SEND- OUT TO [facility] RP hemoglobin A1C 6.0 % 4.8-5. 6 high . . Predi abete s: 5.7 - 6.4 Diabe constantin: >6.4 Glyce brent contr ol for adult s with diabe constantin: <7.0 Perfo rmed at: - [facility] [address] [id number] [facility] Lab Direc tor: Giancarlo colvin PhD, Phone : [phone] Not Available [facility] (Lab) [address] [place], [address], 02/03/2024 07:14:34 01/26/20 24 01/26/2024 CT, chest , w/o contr ast No observ ation record ed. [email or web address] [facility] [address] [place], [address], 01/26/2024 11:30:48 01/26/20 24 01/26/2024 imagi ng/di gioos tic resul t No observ ation record ed. [facility] [address], [place], [address], 01/26/2024 10:54:09 01/26/20 24 01/26/2024 DEXA, axial skele ton [facility] [address] [facility] [address], [place] [address] [phone] Patien t Name: KAMILLE HENDERSON Access ion #: [id number] Sex: F : 1955 6 Dictat ed By: Naun colbert Attend ing Physic alba: GEOFF ESTEBAN Physic alba: OWEN MAHONEY Exam Date: 2023 09:23 AM Exam Name: XR DEXA-H IPS PELVIS SPINE Admitt ing Diagno sis(es ): CLINIC AL HISTOR Y: Postme nopaus al screen ing for osteop orosis . TECHNI QUE: The study was perfor med using a [email or web address] Unit. Lumbar spine and proxim al femora l evalua tions were evalua eagle in the fronta l projec tions. COMPAR LEONELA: XR DEXA-H IPS PELVIS SPINE on DOS: 2 FINDIN GS: L1-L4 demons trates a bone minera l densit y of 1.132 g/cm2 with a T-scor e of -0.5, within normal limits . Left femora l neck evalua tion demons trates a bone minera l densit y of 0.944 g/cm2 with a T-scor e of -0.7, within normal limits . There has been a 1.3% interv al increa se in bone minera l densit y in the lumbar spine compar ed to the prior exam. Right femora l neck evalua tion demons trates a bone minera l densit y of 0.975 g/cm2 with a T-scor e of -0.5 within normal limits . There has been a 0.9% interv al increa se in total mean proxim al femora l bone minera l densit y compar ed to the prior exam. Estima eagle total body fat is 53.3%. BMI is 42. IMPRES VIOLETA: 1. Bone minera l densit y is within the range of normal as detail ed above. 2. Additi onal findin gs as descri bed above. Electr onical ly Signed by: Naun colbert at 2023 07:46: 40 AM Page 1 [facility] [address] [place] [address] Patien t Name: KAMILLE HENDERSON Access ion #: [id number] Sex: F : 1955 6 Dictat ed By: Naun colbert Attend ing Physic alba: HOLLY TELLEZ Physic alba: OWEN MAHONEY Exam Date: 2023 09:23 AM Exam Name: XR DEXA-H IPS PELVIS SPINE Admitt ing Diagno sis(es ): Page 2 INTERFACE [facility] (Imaging) [address] [place], [address], 01/26/2024 10:48:53 01/26/20 24 01/26/2024 DEXA, axial skele ton No observ ation record ed. [facility] [address] [place], [address], 02/29/2024 14:56:34 01/26/20 24 01/26/2024 DEXA, axial skele ton No observ ation record ed. CARLENE [facility] [address] [place], [address], 01/26/2024 10:51:19 01/26/20 24 01/26/2024 scree jelly gross sadiq, bilat [facility] [address] [place] [address] [phone] Patien t Name: KAMILLE HENDERSON Access ion #: [id number] Sex: F : 1955 6 Dictat ed By: Vandana Acosta Attend ing Physic alba: GEOFF ESTEBAN Physic alba: OWEN MAHONEY Exam Date: 2023 09:39 AM Exam Name: MG SCRN BREAST SADIQ BILAT Admitt ing Diagno sis(es ): SCREEN ING MAMMOG LUIS WITH TOMOSY NTHESI S: REASON FOR EXAM: screen ing mammog mike COMPAR LEONELA: MG SCRN BREAST SADIQ BILAT on DOS: 3, MG SCRN BREAST SADIQ BILAT 3D on DOS: 2, SCREEN ING BREAST SADIQ, BILAT 3D on DOS: , DIGITA L MAMM, BILAT SCREEN ING 2D on DOS: 7 TECHNI QUE: Bilate ral CC and MLO views obtain ed. Images were obtain ed using a Digita l Tomosy nthesi s Unit. Standa rd 2D and 3D Tomosy nthesi s images were review ed. FINDIN GS: BREAST COMPOS ITION: A - The bilate ral breast s are almost entire ly fatty. In the right breast , no asymme trical parenc hymal patter n, salinas ectura l distor tion, pleomo rphic microc alcifi cation s or masses . In the left breast , no asymme trical parenc hymal patter n, sal[place] ectura l distor tion, pleomo rphic microc alcifi cation s or masses . IMPRES VIOLETA: No findin gs of malign vidhya. FOLLOW UP RECOMM ENDATI ON: Recomm end annual mammog luis. BIRADS : 2 - Benign Electr onical ly Signed by: Vandaan Acosta at 2023 10:19: 32 AM Page 1 INTERFACE [facility] (Imaging) [address] [place], [address], 01/26/2024 11:20:51 01/26/20 24 01/26/2024 imagi ng/di agnos tic resul t No observ ation record ed. [facility] [address] [place], [address], 01/26/2024 11:22:49 01/26/20 24 01/26/2024 MAMMO , scree jelly, digit al, bilat eral No observ ation record ed. [facility] ([facility] Sched[facility]) [address] [place], [address], 02/29/2024 14:56:51 Result Notes None recorded. Problems Name Problem SNOMED Code Status Onset Date Resolution Date Notes Provider Name and Address Organization Details Recorded Time Osteoarthr itis 266386814 Active 2021 Not Available [facility] 3 05:58:36 Hyperlipid emia 17815693 Active 2021 Not Available [facility] 3 05:58:36 COVID-19 938046964 Active 2021 Not Available [facility] 3 05:58:36 Essential hypertensi on 32754375 Active 2022 Not Available [facility] 3 05:58:36 Coronary arterioscl erosis 95094481 Active 2022 Not Available [facility] 3 05:58:36 Chronic kidney disease 049390154 Active 2022 Not Available [facility] 3 05:58:36 Non-alcoho lic fatty liver 290353774 Active 2022 Not Available [facility] 3 05:58:36 Solitary nodule of lung 745903688 Active 2022 Not Available [facility] 3 05:58:36 Peripheral vascular disease 596403135 Active 2022 Not Available [facility] 3 05:58:36 Venous varices 497218455 Active 2022 Not Available [facility] 3 05:58:36 Smoker 71172471 Active 2023 Carloz chang MD [address] [facility], [place], [address] , [place] [facility] 4 13:15:06 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 4 12:18:01 Hyperglyce kaye 50817953 Active 2023 Carloz chang MD [address], [address], [place], [address] , [facility] 4 12:28:26 Liver enzymes level above reference range 967569330 Active 2023 Carloz chang MD [address], [address], [place], [address] , [facility] 4 12:28:26 Obesity 060404871 Active 2023 Carloz chang MD [address], [address], [place], [address] , [facility] 4 10:53:27 Allergic rhinitis 21317146 Active 2023 Carloz chang MD [address], [address], [place], [address] , [facility] 4 10:53:37 Prediabete s 658528479 Active 2023 Carloz chang MD [address], [address], [place], [address] , [facility] 4 11:24:11 Low back pain 037225743 Active 2023 Carloz chang MD [address], [address], [place], [address] , [facility] 4 14:37:44 Chronic obstructiv e pulmonary disease 66179422 Active 2024 Carloz chang MD [address], [address], [place], [address] , [facility] 5 10:06:50 Pain of right knee joint 4527182418776 00 Active 2024 Carloz chang MD [address], [address], [place], [address] , [facility] 5 10:06:50 Notes:Medical History: COVID infection Rhinitis Eosinophils 230/uL IgE 46 IU/mL AAT PiMM 159 mg% Nicotine use Mild ACO Equivocal Coccidioides IgG 5 mm MIGUEL ANGEL nodule Obesity Hypertension EF 55% Hyperlipidemia CAD Fatty liver Bilateral renal cysts CKD Vit D deficiency OA PVD Varicoces Procedure History: [facility] 1995 Cholecystectomy 2020 Occupational History: Retired [employer] worker Some problems listed in Document: #[id number] could not be added to this patient's chart. Please review this document and add these problems to the patient's chart manually as needed. Problem Notes None recorded. Procedures Surgical History Date Name Laterality Status Provider Name and Address Organization Details Recorded Time 10/04/19 Medicare Wellness CPT Code, subsequent completed Obi Mota LPN [facility] 10/04/2023 08:37:03 10/04/19 24 Advanced Care Planning completed Obi Mota LPN [facility] 10/04/2023 12:21:24 09/07/19 23 Cystoscopy (female) completed Nic Wilson MD [address], [address], [place], [address], [employer] [facility] 09/06/2022 15:46:03 08/04/19 23 Medicare Wellness CPT Code, Initial completed Susan Gutierrez RN [facility] [facility] 08/03/2022 14:42:36 03/19/20 22 Colonoscopy completed NAVDEEP Rodríguez [place] [facility] [facility] 08/03/2022 14:12:51 10/21/19 21 Cholecystectomy completed Not Available [facility] 2022 17:29:54 Hysterectomy completed Not Available [facility] 2022 17:29:54 Imaging Results Imaging Date Name Status LastModified by Organiz ation Details LastModified Time 01/26/2024 CT, chest, w/o contrast completed [email or web address] [place] [address] [address] [place], [address], 01/26/2024 11:30:48 01/26/2024 imaging/diagno stic result active [facility] [address] [place], [address], 01/26/2024 10:54:09 01/26/2024 DEXA, axial skeleton active INTERFACE [facility] (Imaging) [address] [place], [address], 01/26/2024 10:48:53 01/26/2024 DEXA, axial skeleton completed [address] [place], [address], 02/29/2024 14:56:34 01/26/2024 DEXA, axial skeleton active [facility] [address] [place], [address], 01/26/2024 10:51:19 01/26/2024 screening breast sadiq, bilat active INTERFACE [facility] (Imaging) [address] [place], [address], 01/26/2024 11:20:51 01/26/2024 imaging/diagno stic result active [facility] [address] [place], [address], 01/26/2024 11:22:49 01/26/2024 MAMMO, screening, digital, bilateral completed [facility] ([facility] Sched[facility]) [address], [place], [address], 02/29/2024 14:56:51 Procedure Notes None recorded. Medical Equipment None Reported. Allergies Allergen ID Allergen Name Allergen Category Reaction Reaction Severity Criticality Documentation Date Start Date Code Code System Note Provider Name and Address Organization Details Recorded Time 27333 Macrobid medicatio n facial swelling rash Not available Not available Not available 2022 59589 1 RxNorm Not Available [facility] 17:32:13 Medications Name Sig Start Date Stop Date Status Note LastModified by Organization Details LastModified Time cyclobenz aprine 10 mg tablet TAKE 1 TABLET BY MOUTH EVERY DAY NEEDED*u se sparingl y* 2023 active Not Available Not Available Not Avai lable amoxicill in 500 mg capsule TAKE 1 CAPSULE BY MOUTH THREE TIMES DAILY FOR 5 DAYS 03/07 completed Not Available Not Available Not Available nicotine 14 mg/24 hr daily transderm al patch 06/27 completed Not Available Not Available Not Available cetirizin e 10 mg tablet TAKE 1 TABLET BY MOUTH EVERY DAY NEEDED 04/03 completed Not Available Not Available Not Available ibuprofen 800 mg tablet TAKE 1 TABLET BY MOUTH EVERY 6-8 HOURS NEEDED 03/17 completed Not Available Not Available Not Available lisinopri l 20 mg tablet 09/10 completed Not Available Not Available Not Available ondansetr on HCl 4 mg tablet TAKE 1 TABLET BY MOUTH EVERY 8 HOURS 08/03 completed Not Available Not Available Not Available Zithromax Z-Naveen 250 mg tablet TAKE 2 TABLETS (500 MG) BY ORAL ROUTE ONCE DAILY FOR 1 DAY THEN 1 TABLET (250 MG) BY ORAL ROUTE ONCE DAILY FOR 4 DAYS 08/03 completed Not Available Not Available Not Available metronida zole 500 mg tablet active Not Available Not Available No t Available ciproflox acin 250 mg tablet Take 1 tablet every 12 hours by oral route for 2 days. active Not Available Not Available No t Available amlodipin e 5 mg tablet TAKE 1 TABLET BY MOUTH EVERY DAY AROUND THE CLOCK active Not Available Not Available No t Available ciproflox acin 500 mg tablet TAKE 1 TABLET BY MOUTH TWICE DAILY 02/01 completed Not Available Not Available Not Available sulfameth oxazole 800 mg-trimet hoprim 160 mg tablet TAKE 1 TABLET BY MOUTH TWICE DAILY FOR 5 DAYS 03/17 completed Not Available Not Available Not Available triamcino lone acetonide 0.1 % topical cream APPLY SMALL AMOUNT TOPICALL Y TO THE AFFECTED AREA TWICE DAILY 10/29 completed Not Available Not Available Not Available amoxicill in 500 mg tablet TAKE 1 TABLET BY MOUTH EVERY 8 HOURS FOR 7 DAYS 10/03 completed Not Available Not Available Not Available meloxicam 7.5 mg tablet TAKE 1 TABLET BY MOUTH TWICE DAILY NEEDED WITH FOOD 06/21 completed Not Available Not Available Not Available oxycodone -acetamin ophen 5 mg-325 mg tablet TAKE 1 TABLET BY MOUTH EVERY 4 TO 6 HOURS NEEDED 10/28 completed Not Available Not Available Not Available amoxicill in 875 mg tablet 06/27 completed Not Available Not Available Not Available dicyclomi ne 20 mg tablet active Not Available Not Available Not Available Kenalog 10 mg/mL suspensio n for injection In office injectio n administ ered by the provider 08/03 completed [facility]: [phone] 4-20 Not Available Not Available Not Available amlodipin e 10 mg tablet TAKE 1 TABLET BY MOUTH EVERY DAY 03/17 completed Not Available Not Available Not Available cephalexi n 500 mg capsule TAKE 1 CAPSULE BY MOUTH TWICE DAILY 02/01 completed Not Available Not Available Not Available ranitidin e 150 mg tablet 09/10 completed Not Available Not Available Not Available lisinopri l 10 mg tablet 06/27 completed Not Available Not Available Not Available ibuprofen 400 mg tablet 09/10 completed Not Available Not Available Not Available nicotine 21 mg/24 hr daily transderm al patch UNWRAP AND APPLY 1 PATCH TO SKIN ONCE A DAY 2024 active Not Available Not Available Not Avai lable hydrochlo rothiazid e 12.5 mg capsule 06/27 completed Not Available Not Available Not Available cephalexi n 500 mg tablet TAKE 1 TABLET BY MOUTH TWICE DAILY 10/28 completed Not Available Not Available Not Available bisacodyl 5 mg tablet,de layed release TAKE 6 TABLETS BY MOUTH AT 8 AM ON 08/03 completed Not Available Not Available Not Available Q-Tussin DM 10 mg-100 mg/5 mL oral syrup active Not Available Not Available Not Available ergocalci ferol (vitamin D2) 1,250 mcg (50,000 unit) capsule TAKE 1 CAPSULE BY MOUTH ONCE A WEEK active Not Available Not Available No t Available ibuprofen 600 mg tablet TK 1 T PO TID 10/29 completed Not Available Not Available Not Available levofloxa erick 750 mg tablet TAKE ONE TABLET DAILY FOR 10 DAYS 12/05 completed Not Available Not Available Not Available albuterol sulfate HFA 90 mcg/actua tion aerosol inhaler INHALE 1 PUFF BY MOUTH EVERY 4 HOURS NEEDED active Not Available Not Available No t Available lisinopri l 40 mg tablet TAKE 1 TABLET BY MOUTH DAILY DIRECTED active Not Available Not Available No t Available fluticaso ne propionat e 50 mcg/actua tion nasal spray,[employer] [place] 1 spray every day by intranas al route for 90 days. 02/06 completed Not Available Not Available Not Available calcitrio l 0.25 mcg capsule TAKE 1 CAPSULE BY MOUTH EVERY OTHER DAY active Not Available Not Available No t Available naproxen 500 mg tablet TAKE 1 TABLET BY MOUTH TWICE DAILY WITH FOOD 12/10 completed Not Available Not Available Not Available amoxicill in 875 mg-potass ium clavulana te 125 mg tablet TAKE 1 TABLET BY MOUTH TWICE DAILY 06/21 completed Not Available Not Available Not Available amoxicill in 500 mg-potass ium clavulana te 125 mg tablet 12/05 completed Not Available Not Available Not Available nicotine 7 mg/24 hr daily transderm al patch active Not Available Not Available Not Available cyclobenz aprine 5 mg tablet TAKE 1 TABLET BY MOUTH EVERY 8 HOURS NEEDED 02/06 completed Not Available Not Available Not Available rosuvasta tin 40 mg tablet TAKE 1 TABLET BY MOUTH EVERY DAY active Not Available Not Available No t Available bupropion HCl XL 150 mg 24 hr tablet, extended release TAKE 1 TABLET BY MOUTH EVERY DAY DIRECTED 10/29 completed Not Available Not Available Not Available nitrofura ntoin monohydra te/macroc rystals 100 mg capsule 10/29 completed Not Available Not Available Not Available meloxicam 7.5 mg 1 tab once a day 10/29 completed stopped in hosp Not Available Not Available Not Available peg 3350-elec trolytes 236 gram-22.7 4 gram-6.74 gram-5.86 gram solution MIX AND DRINK 1/2 AT 5PM ON 2 AND 1/2 AT 5AM 03/19/2008/03 completed Not Available Not Available Not Available ropivacai ne (PF) 5 mg/mL (0.5 %) injection solution In office injectio n administ ered by the provider 08/03 completed Not Available Not Available Not Available dapaglifl ozin propanedi ol 10 mg tablet TAKE 1 TABLET BY MOUTH DAILY active Not Available Not Available No t Available Farxiga 5 mg tablet TAKE 1 TABLET BY MOUTH EVERY DAY active Not Available Not Available No t Available albuterol sulf 90 mcg/actua tion breath activated powder inhaler,s ensor Inhale 2 puffs every 4 hours by inhalati on route. 10/29 completed Not Available Not Available Not Available Sutab 1.479-0.1 88-0.225 gram tablet TAKE DIRECTED 04/03 completed Not Available Not Available Not Available Paxlovid 150 mg-100 mg tablets in a dose pack (Renal Dose) Take 2 tablets twice a day by oral route for 5 days. 07/26 completed Not Available Not Available Not Available Vitals Date Recorded Body height Body mass index (BMI) Body weight Body temperature Heart rate Systolic blood pressure Diastolic blood pressure Provider Name and Address Organization Details Last Updated DateTime 4 162.56 cm 39.7 kg/m2 726851. 84 g 97.7 [degF] 60 /min 120 mm[Hg] 80 mm[Hg] NAVDEEP Rodríguez [place] [facility] [employer] [facility] 4 11:50:17 Date Recorded Body height Body mass index (BMI) Body weight Body temperature Heart rate Oxygen saturation Oxygen saturation in Arterial blood by Pulse oximetry Systolic blood pressure Diastolic blood pressure Provider Name and Address Organization Details Last Updated DateTime 4 162.56 cm 39.3 kg/m2 220575. 65 g 97.8 [degF] 65 /min 97 % 97 % 122 mm[Hg] 70 mm[Hg] Dennis Diaz CMA [facility] [employer] [facility] 4 11:30:38 Date Recorded Heart rate Respiratory rate Provider N gadiel and Address Organization Details Last Updated DateTime 03/07/2024 65 /min 15 /min Geoff Esteban MD [address], [facility] [address], [place], [address], [facility] [employer] [facility] 03/07/2024 11:59:42 Date Recorded Body height Body mass index (BMI) Body weight Body temperature Heart rate Oxygen saturation Oxygen saturation in Arterial blood by Pulse oximetry Pain severity - 0-10 verbal numeric rating [Score] - Reported Systolic blood pressure Diastolic blood pressure Provider Name and Address Organization Details Last Updated DateTime 4 162.56 cm 38.3 kg/m2 901652. 1 g 97.4 [degF] 71 /min 96 % 96 % 4 120 mm[Hg] 66 mm[Hg] Shani Enriquez MA [facility] [employer] [facility] 4 14:29:46 Date Recorded Body height Body mass index (BMI) Body weight Body temperature Heart rate Systolic blood pressure Diastolic blood pressure Provider Name and Address Organization Details Last Updated DateTime 5 162.56 cm 39.7 kg/m2 450524. 84 g 97.1 [degF] 72 /min 120 mm[Hg] 76 mm[Hg] NAVDEEP Rodríguez [facility] [employer] [facility] 5 10:24:01 Date Recorded Body height Body mass index (BMI) Body weight Body temperature Heart rate Systolic blood pressure Diastolic blood pressure Provider Name and Address Organization Details Last Updated DateTime 5 162.56 cm 39 kg/m2 142510. 47 g 97.2 [degF] 72 /min 122 mm[Hg] 60 mm[Hg] NAVDEEP Rodríguez [facility] 5 12:20:49 Social History Question Answer Notes LastModified by Organizat ion Details LastModified Time Tobacco Smoking Status Current Every Day Smoker TENNILLE Zhou, [facility] [employer] [facility] 04/14/2023 15:28:12 Do You Have An Advance Directive? No MIGRATION.18627 67865 Information not available 2022 What Is Your Level Of Alcohol Consumption? None MIGRATION.73217 76980 Information not available 2022 Do You Wear A Helmet When Biking? No Does Not Bike [email or web address] Information not available 10/04/2023 Are You Blind Or Do You Have Difficulty Seeing? No MIGRATION.66728 00583 Information not available 2022 What Is Your Level Of Caffeine Consumption? Heavy MIGRATION.93143 49229 Information not available 2022 How Much Tobacco Do You Chew? None MIGRATION.79742 45029 Information not available 2022 In The 14 Days Before Symptom Onset, Have You Had Close Contact With A Laboratory-confi rmed COVID-19 While That Case Was Ill? No MIGRATION.38190 99230 Information not available 2022 In The 14 Days Before Symptom Onset, Have You Had Close Contact With A Person Who Is Under Investigation For COVID-19 While That Person Was Ill? No MIGRATION.91604 01681 Information not available 2022 Are You Currently Employed? No Information not available 08/22/2023 Are You Deaf Or Do You Have Serious Difficulty Hearing? No MIGRATION.77644 31232 Information not available 2022 What Type Of Diet Are You Following? REGULAR MIGRATION.12950 16377 Information not available 2022 What Is The Highest Grade Or Level Of School You Have Completed Or The Highest Degree You Have Received? [id number] MIGRATION.78460 82952 Information not available 2022 Do You Have An Electrostatic Air Filter? No Information not available 04/14/2023 Have There Been Any Changes To Your Family Or Social Situation? No MIGRATION.94164 59200 Information not available 2022 What Is The Fluoride Status Of Your Home? Unknown MIGRATION.47350 19749 Information not available 2022 Are There Any Guns Present In Your Home? No MIGRATION.05261 06169 Information not available 2022 Do You Have A Humidifier? No Information not available 04/14/2023 Do You Use Insect Repellent Routinely? No MIGRATION.98751 35934 Information not available 2022 Where Do You Live? Apartment Information not available 08/03/2022 Presence Of Domestic Violence No Information not available 08/03/2022 Guns Present In The Home? No Information not available 08/03/2022 Are You Able To Care For Yourself? Yes Information not available 08/03/2022 Are You Blind Or Do Yo Have Difficulty Seeing? No Information not available 08/03/2022 Are You Deaf Or Do You Have Serious Difficulty Hearing? No Information not available 08/03/2022 General Stress Level? Low Information not available 08/03/2022 Live Alone Of With Others? Alone Information not available 08/03/2022 Do You Have A Medical Power Of Kiss Machine Operator? No MIGRATION.21933 39127 Information not available 2022 Do You Have Moisture Problems In Your Home? No Information not available 04/14/2023 What Was The Date Of Your Most Recent Tobacco Screening? 06/21/2024 Information not available 06/21/2024 How Many Children Do You Have? 1 Information not available 04/03/2024 What Is Your Current Pack Years? 20-29packyea rs [email or web address] Information not available 10/04/2023 Do You Have Any Pets? Yes MIGRATION.86807 73955 Information not available 2022 What Is Your Relationship Status? MIGRATION.99942 31161 Information not available 2022 Do You Use Your Seat Belt Or Car Seat Routinely? Yes MIGRATION.36339 02639 Information not available 2022 Do You Have Smoke And Carbon Monoxide Detectors In Your Home? Yes MIGRATION.31440 45388 Information not available 2022 At What Age Did You Start Smoking Tobacco? 14 MIGRATION.19922 75548 Information not available 2022 Are You Passively Exposed To Smoke? Yes MIGRATION.26455 46151 Information not available 2022 Are There Any Smokers In Your House? Yes MIGRATION.14546 46429 Information not available 2022 How Much Tobacco Do You Smoke? 1 PPW Smoking Abbout 2-3 Cigarettes Per Day. Was 1/2ppd Information not available 07/10/2024 What Types Of Sporting Activities Do You Participate In? None MIGRATION.79210 43762 Information not available 2022 Do You Feel Stressed (tense, Restless, Nervous, Or Anxious, Or Unable To Sleep At Night)? [id number] MIGRATION.47483 28609 Information not available 2022 Do You Use Any Illicit Or Recreational Drugs? No MIGRATION.81839 28247 Information not available 2022 Do You Use Sunscreen Routinely? Yes Information not available 08/03/2022 Has Tobacco Cessation Counseling Been Provided? Yes Information not available 10/04/2023 On What Date Was Tobacco Cessation Counseling Provided? 10/04/2023 [email or web address] Information not available 10/04/2023 Have You Recently Traveled Abroad? No MIGRATION.21729 48784 Information not available 2022 Do You Have Any Dietary Restrictions? No MIGRATION.81116 73747 Information not available 2022 Do You Or Have You Ever Used Any Other Forms Of Tobacco Or Nicotine? No MIGRATION.82357 05654 Information not available 2022 Sex: Female Functional Status Question Answer Note LastModified by Organizat ion Details LastModified Time Do you have difficulty walking or climbing stairs? No MIGRATION.963865 2633 Information not available 2022 Do you have transportation difficulties? No MIGRATION.070193 4753 Information not available 2022 Are you able to walk? YESWOREST MIGRATION.216615 9380 Information not available 2022 Do you have difficulty doing errands alone? No MIGRATION.766933 4241 Information not available 2022 Are you able to care for yourself? Yes MIGRATION.102968 5723 Information not available 2022 Do you have difficulty dressing or bathing? No MIGRATION.131325 7856 Information not available 2022 What is your exercise level? Occasional stays active MIGRATION.500885 4898 Information not available 2022 Mental Status Question Answer Note LastModified by Organizat ion Details LastModified Time Do you have difficulty concentrating, remembering or making decisions? No MIGRATION.691988861 6 Information not available 2022 Family History Relationship Description Onset Age of this Age Resolved Age Notes LastModified by Organization Details LastModified Time Father Hypertensive disorder MIGRATION.661 [id number] Not available 2022 17:29:55 Father Gout MIGRATION.850 [id number] Not available 2022 17:29:55 Mother Hypercholest erolemia MIGRATION.580 6916339 Not available 2022 17:29:55 Mother Cholecystect jayden gallst ones MIGRATION.062 [id number] Not available 2022 17:29:55 Paternal Grandmother Diabetes mellitus MIGRATION.587 6203512 Not available 2022 17:29:55 Paternal Grandfather Diabetes mellitus MIGRATION.140 [id number] Not available 2022 17:29:55 Unspecified Relation Family history of ischemic heart disease patern al side MIGRATION.517 [id number] Not available 2022 17:29:55 Unspecified Relation Arthritis [employer] Not available 03/17/2023 14:50:58 Unspecified Relation Hypertensive disorder [employer] Not available 03/17/2023 14:51:36 Unspecified Relation Heart disease [employer] Not available 03/17/2023 14:51:53 Father Arthritis Not available 03/17/2023 14:50:58 Mother Hypertensive disorder Not available 2022 14:51:10 Son Asthma [email or web address] Not available 12/2023 11:02:01 Medical History Condition Response NERVE DISEASE N BLINDNESS N RHEUMATIC FEVER N KIDNEY STONES N BLADDER PROBLEMS N MRSA N OTHER # 1 N POLIO N LUNG DISEASE/DISORDER N HISTORY OF DRUG ABUSE N RADIATION / CHEMOTHERAPY N COPD Y Other # 2 N BLOOD DISEASES N EAR OR HEARING PROBLEMS N MUMPS N SHINGLES N BOWEL PROBLEMS N DEPRESSION (INCLUDING POST ) N STROKE/TIA N ULCERS N BENIGN PROSTATIC HYPERPLASIA N MEASLES N HYPOTENSION N MYOCARDIAL INFARCTION N OBESITY N GERD/NAUSEA N ANEURYSM N URINARY/BLADDER/KIDNEY PROBLEMS Y CORONARY ARTERY DISEASE (CAD) N ADDICTION CONCERNS N ENDOMETRIOSIS N Impotence N USE OF BLOOD THINNERS N SKIN PROBLEMS N GASTROINTESTINAL DISORDER N PERIPHERAL VASCULAR DISEASE N MUSCLE,JOINT OR BONE PROBLEMS N GASTROINTESTINAL BLEEDING N BLOOD CLOTS N ASTHMA N CATARACTS N ERECTILE DYSFUNCTION N VARICOSITIES N GI PROBLEMS N Low Testosterone N INFERTILITY N AIDS/HIV N CHEMOTHERAPY / RADIATION N LIVER DISEASE N MALE HYPOGONADISM N HYPERTENSION Y Deficiency N TOURETTE'S N ANXIETY DISORDER N BLOOD TRANSFUSION N ANEMIA/BLOOD DISORDER N CHRONIC EAR INFECTIONS N BRONCHITIS N TUBERCULOSIS N GLAUCOMA N FOOT PROBLEM N DIVERTICULITIS N CHICKENPOX N SLEEP APNEA N INFECTIOUS DISEASE N HEART ARRHYTHMIA N PROSTATE N INSOMNIA N HIGH CHOLESTEROL / HYPERLIPIDEMIA Y HYPERTHYROIDISM N EYE PROBLEMS N EDEMA N CHRONIC PAIN SYNDROME N HYPOTHYROIDISM N CAROTID BLOCKAGE N CONSTIPATION N BACK / NECK PROBLEMS N ATHEROSCLEROSIS N BREAST PROBLEMS N DIALYSIS N ECZEMA N OSTEOPOROSIS N ARTHRITIS Y APPENDICITIS N DIABETES, TYPE N BAD TEETH N ENT N HEARTBURN / REFLUX N AUTISM SPECTRUM DISORDER (ASD) N HEPATITIS / LIVER DISEASE N GOUT N SLEEP DISORDER N ALZHEIMER'S DISEASE N Brain Problems N HERPES N DEMENTIA N HEADACHES/MIGRAINES N SEIZURES/EPILEPSY N VASCULAR DISEASE N PACEMAKER N Blood Disorder N DIZZINESS N HEART DISEASE/HEART PROBLEMS N KIDNEY DISEASE Y MULTIPLE SCLEROSIS N CARDIAC ARRHYTHMIA N CANCER: SPECIFY N ATRIAL FIBRILLATION N Gall Stones Y PULMONARY EMBOLISM N AUTOIMMUNE DISEASE N Gynecological History Statement/Question Response How many live births 1 Date of Last Colonoscopy Date of Last Mammogram Date of LMP Most Recent Bone Density Date of Last Pap Current Control Method Hysterectom y Obstetrics History GPAL:G 1 P 1 0 0 1 Type Value Multiple Births 0 Full Term 1 Induced 0 Spontaneous 0 Premature 0 Living 1 Ectopics 0 Total 1 Immunizations Vaccine Type Date Status Note Provider Nam e and Address Organization Details Recorded Time Pneumococcal conjugate PCV20, polysaccharide [id number] conjugate, adjuvant, PF 3 completed NAVDEEP Rodríguez [facility] 06/21/2024 10:21:30 RSV, bivalent, protein subunit RSVpreF, diluent reconstituted, 0.5 mL, PF 4 completed NAVDEEP Rodríguez [facility] 07/10/2024 12:17:37 COVID-19, mRNA, LNP-S, PF, brian-sucrose, 30 mcg/0.3 mL 4 completed NAVDEEP Rodríguez [facility] 07/10/2024 12:17:37 Influenza, high-dose, trivalent, PF 4 completed NAVDEEP Rodríguez, [facility] 07/10/2024 12:17:37 Influenza, high-dose, quadrivalent, PF 3 completed NAVDEEP Rodríguez [facility] 03/09/2023 17:52:02 Influenza, high-dose, quadrivalent, PF 4 completed NAVDEEP Rodríguez, [place] [facility] [employer] [facility] 03/07/2024 18:02:00 Past Encounters Encounter ID Performer Location Encounter Start Date Encounter Closed Date Diagnosis/Indication Diagnosis SNOMED-CT Code Diagnosis ICD10 Code Diagnosis Note [id number] [facility] General Surgery [address] [facility] [address] [place] [address] 09/11/2020 00:00:00 09/11/2020 13:19:12 [id number] [facility] [address] [facility] [address] [address] 10/28/2020 00:00:00 10/28/2020 12:01:11 [id number] [facility] Internal [facility] [place] [address] [place], [place] [address]., [address] [address] 10/29/2021 00:00:00 11/13/2021 09:50:03 [id number] [facility] [address] [address] 12/10/2021 00:00:00 01/12/2022 19:13:10 [id number] [facility] Internal Med [facility] [address] [place], [place] [address]., [address] [address] 02/02/2022 00:00:00 02/02/2022 14:25:33 [id number] [facility] [address] [address] 03/04/2022 00:00:00 03/04/2022 11:09:33 [id number] Carloz chang MD [facility] Internal Med [facility] [address] [place] [address]., [address] [address] 08/03/2022 13:57:15 08/03/2022 15:08:25 Screening - NAD 468267064 Z13.9 C-scope: Get thisMammog luis: 12/01/2021 : NegPAP: Get this, declines today 02/02/2022 , states that she does not have any uterus and does not want a OB referral, denies any complaints DEXA: 12/01/2021 : Osteopenia , do ca and vit dGet yearly flu shotGet tdap if not doneShould do penumovax vaccineGet shingrixSh ould do COVID 19 vaccine, follow all CDC guidelines RTC in 6 monthsDo labsER if worseShe did verbalize her understand ing of the above Essential hypertension 92180638 I10 On amlodipine 5mg dailyOn lisinopril 40mg dailyGet labs Smoker 16014636 F17.200 LDCT 11/04/2021 : Next in one yearAdvise d to quit!No complaints Coronary arteriosclerosis 98967728 I25.10 Dr Hallman 12/16/2021 : [facility], next in one monthDr Hallman 03/30/2022 : F/u in 3 months 01/07/2022 : Stress test: Neg 022: ECHO: EF 55% Chronic ob structive pulmonary disease 09253271 J44.9 On albuterolO n flonase Chronic ki dney disease 769448111 N18.[address] Alonzo HAYES Pain of ri ght knee joint 8059528214 45000 M25.561 Get a referral to orthoStart on PRN meloxicamD r Yasmin 12/10/2021 Jaron LAINEZ 03/04/2022 Hyperlipidemia 29924568 E78.[address] [facility] [address] Hallman 03/12/2022 , on crestor Hyperglycemia 46988312 R 73.9 Declines medsGet labs [facility] 571710146 Z00.00 Screening for disorder 009878081 Z13.9 Administra tion of pneumococcal vaccine 36804463 Z23 [id number] [facility] [address] [address] 08/10/2022 15:41:20 08/10/2022 16:34:13 Microscopic hematuria 429601437 R31.29 In a smoker, some renal disease, suggested she stop smoking, check stone ct and fu for cysto. [id number] MD [facility] [address] [address] 09/06/2022 15:26:58 09/06/2022 15:54:39 Microscopic hematuria 626852593 R31.[address] , cysto, she needs to stop smoking. [id number] Carloz chang MD [facility] Internal Med [facility] [address] [place] [address] [place] [address] 02/01/2023 14:55:10 02/01/2023 15:20:23 Screening - NAD 180838844 Z13.9 C-scope: Get this Mammogram: 12/01/2021 : NegMammogr am: 12/23/2022 : Neg PAP: Get this, declines today 02/02/2022 , states that she does not have any uterus and does not want a OB referral, denies any complaints DEXA: 12/01/2021 : Osteopenia , do ca and vit d Get yearly flu shotGet tdap if not doneShould do penumovax vaccineGet shingrixSh ould do COVID 19 vaccine, follow all CDC guidelines Get RSV vaccine RTC in 6 monthsDo labsER if worseShe did verbalize her understand ing of the above Essential hypertension 12939676 I10 On amlodipine 5mg dailyOn lisinopril 40mg daily Get labs Smoker 07926736 F17.200 LDCT 11/04/2021 : Next in one year Advised to quit! No complaints Coronary arteriosclerosis 42979061 I25.10 Dr Hallman 12/16/2021 : [facility], next in one monthDr Viji 03/30/2022 : F/u in 3 monthsDr Viji 11/24/2022 : F/u in 6 months 01/07/2022 : Stress test: Neg 022: ECHO: EF 55% Chronic ob structive pulmonary disease 50622394 J44.9 On albuterolO n flonase Chronic ki dney disease 915395360 N18.[address] Alonzo HAYES Pain of ri ght knee joint 7794426664 60117 M25.561 Get a referral to orthoStart on PRN meloxicamD r Yasmin 12/10/2021 Jaron LAINEZ 03/04/2022 Hyperlipidemia 65059011 E78.[address] [facility] [address] Hallman 03/12/2022 , on crestor Hyperglycemia 13375948 R 73.9 Declines medsGet labs Screening for malignant neoplasm of colon 534550628 Z12.11 Liver enzy mes level above reference range 479005802 R74.01 Get hepatitis panel, GGT and US liver done [id number] Darek Pino DPM [facility] [address], [facility] [address] [place] [address] 03/17/2023 14:45:38 03/17/2023 16:04:46 Peripheral vascular disease 190226707 I73.9 obtain noninvasiv e vascular testing secondary to intermitte nt claudicati on without wounds Cigarette smoker 7260855 7 F17.210 educated on side effects of smokingRec ommend discontinu e smokingpac k a day smoker Venous varices 405430840 I83.93 educated on conditionr ecommend for compressio n therapy dailyeleva tion of legs when at restmuscle pumps when at rest [id number] Darek Pino DPM [facility] Podiatry [place] [id number] [facility], [facility] [address] 7 03/31/2023 11:17:38 03/31/2023 12:40:46 Peripheral vascular disease 643511622 I73.9 Ultrasound reviewed with the patientRec ommend daily exerciseCo ntinue supportive shoe gearCheck feet daily for wounds infection to prevent limb lossfollow -up in 1 year Cigarette smoker 4007076 7 F17.210 educated on side effects of smokingRec ommend discontinu e smokingpac k a day smoker Venous varices 426019505 I83.93 educated on conditionr ecommend for compressio n therapy dailyeleva tion of legs when at restmuscle pumps when at rest [id number] Geoff Esteban MD [facility] Pulmonolo gy [address] 15 [place] [address] 04/14/2023 14:52:12 04/14/2023 20:30:28 Dyspnea on exertion 66179469 R06.09 R05.9 T78.40XA D89.9 [id number] Carloz chang MD [facility] Internal Med [facility] [address] [facility] [place] [address] [place] [address] 06/07/2023 15:21:58 06/09/2023 12:33:07 Screening - NAD 747872531 Z13.9 C-scope: Get this, understand s the risks for not doing this test in a timely manner, concern for CRC Mammogram: 12/01/2021 : NegMammogr am: 12/23/2022 : Neg PAP: Get this, declines today 02/02/2022 , states that she does not have any uterus and does not want a OB referral, denies any complaints DEXA: 12/01/2021 : Osteopenia , do ca and vit d Get yearly flu shotGet tdap if not doneShould do penumovax vaccineGet shingrixSh ould do COVID 19 vaccine, follow all CDC guidelines Get RSV vaccine RTC in 6 monthsDo labsER if worseShe did verbalize her understand ing of the above Essential hypertension 80114980 I10 On amlodipine 5mg dailyOn lisinopril 40mg daily Get labs Smoker 90509968 F17.200 LDCT 11/04/2021 : Next in one year Advised to quit! No complaints Coronary arteriosclerosis 45792250 I25.10 Dr Hallman 12/16/2021 : [facility], next in one monthDr Viji 03/30/2022 : F/u in 3 monthsDr Viji 11/24/2022 : F/u in 6 months 01/07/2022 : Stress test: Neg 022: ECHO: EF 55% Chronic ob structive pulmonary disease 17525533 J44.9 On albuterolO n flonase Chronic ki dney disease 667301089 N18.[address] Alonzo HAYES Pain of ri ght knee joint 1971052315 76623 M25.561 Get a referral to orthoStart on PRN meloxicamD r Yasmin 12/10/2021 Jaron LAINEZ 03/04/2022 Hyperlipidemia 30184823 E78.[address] [facility] [address] Hallman On rosuvastat in 40mg daily Hyperglycemia 80182387 R 73.9 Declines medsGet labs Screening for malignant neoplasm of colon 692555273 Z12.11 Liver enzy mes level above reference range 054743410 R74.01 US Liver: 03/03/2023 Get hepatitis panel, GGT and US liver done [id number] Geoff Esteban MD [facility] Pulmonolo gy [place] [address] 08/22/2023 10:01:21 08/22/2023 14:05:24 Solitary nodule of lung 549287677 R91.1 Mild inter mittent asthma 743336905 J45.20 J44.9 [id number] Carloz chang MD [facility] Internal Med [facility] [address] [place], [place] [address] 08/23/2023 11:25:51 08/23/2023 12:43:48 Increased frequency of urination 058670962 R35.0 UA: 08/23/2023 : Chantale smallGet on amoxicilli n 500mg tid for 7 days Screening - NAD 28986572 3 Z13.9 C-scope: Get this, understand s the risks for not doing this test in a timely manner, concern for CRC Mammogram: 12/01/2021 : NegMammogr am: 12/23/2022 : Neg PAP: Get this, declines today 02/02/2022 , states that she does not have any uterus and does not want a OB referral, denies any complaints DEXA: 12/01/2021 : Osteopenia , do ca and vit d Get yearly flu shotGet tdap if not doneShould do penumovax vaccineGet shingrixSh ould do COVID 19 vaccine, follow all CDC guidelines Get RSV vaccine RTC in 4 monthsDo labsER if worseShe did verbalize her understand ing of the above Essential hypertension 85609017 I10 On amlodipine 5mg dailyOn lisinopril 40mg daily Get labs Smoker 66949731 F17.200 LDCT 11/04/2021 : Next in one year Advised to quit! No complaints Coronary arteriosclerosis 52193444 I25.10 Dr Hallman 12/16/2021 : [facility], next in one monthDr Viji 03/30/2022 : F/u in 3 monthsDr Viji 11/24/2022 : F/u in 6 months 01/07/2022 : Stress test: Neg 022: ECHO: EF 55% Chronic ob structive pulmonary disease 28973495 J44.9 On albuterolO n flonase Chronic ki dney disease 257344444 N18.[address] Rosado IJ Pain of ri ght knee joint 0250291096 28751 M25.561 Get a referral to orthoStart on PRN meloxicamD r Yasmin 12/10/2021 Jaron LAINEZ 03/04/2022 Hyperlipidemia 56877310 E78.[address] [facility] [address] Hallman On rosuvastat in 40mg daily Hyperglycemia 97543402 R 73.9 Declines medsGet labs Screening for malignant neoplasm of colon 911804835 Z12.11 Liver enzy mes level above reference range 404566648 R74.01 US Liver: 03/03/2023 Get hepatitis panel, GGT and US liver done Screening mammography 24 176406 Z12.31 Screening for osteoporosis 556565322 Z13.688 [id number] Carloz chang MD [facility] [place] [address] [facility], [place] [address] [place] [address] 10/04/2023 10:25:14 10/04/2023 11:30:45 Screening - NAD 793200758 Z13.9 C-scope: Get this, understand s the risks for not doing this test in a timely manner, concern for CRC Mammogram: 12/01/2021 : NegMammogr am: 12/23/2022 : Neg PAP: Get this, declines today 02/02/2022 , states that she does not have any uterus and does not want a OB referral, denies any complaints DEXA: 12/01/2021 : Osteopenia , do ca and vit d Get yearly flu shotGet tdap if not doneShould do penumovax vaccineGet shingrixSh ould do COVID 19 vaccine, follow all CDC guidelines Get RSV vaccine RTC in 4 monthsDo labsER if worseShe did verbalize her understand ing of the above Essential hypertension 67506463 I10 On amlodipine 5mg dailyOn lisinopril 40mg daily Get labs Smoker 34438409 F17.200 LDCT 11/04/2021 : Next in one year Advised to quit! No complaints Coronary arteriosclerosis 90970595 I25.10 Dr Hallman 12/16/2021 : [facility], next in one monthDr Viji 03/30/2022 : F/u in 3 monthsDr Viji 11/24/2022 : F/u in 6 months 01/07/2022 : Stress test: Neg 022: ECHO: EF 55% Chronic ob structive pulmonary disease 76319988 J44.9 On albuterolO n flonase Chronic ki dney disease 190209114 N18.9 On calcitriol On vit d weekly Sees Dr Rosado IJ Pain of ri ght knee joint 3794523702 92709 M25.561 Get a referral to orthoStart on PRN meloxicamD r Yasmin 12/10/2021 Jaron LAINEZ 03/04/2022 Hyperlipidemia 14227116 E78.[address] [facility] [address] Hallman On rosuvastat in 40mg daily Screening for malignant neoplasm of colon 578764970 Z12.11 Liver enzy mes level above reference range 319919222 R74.01 US Liver: 03/03/2023 Get hepatitis panel, GGT and US liver done Screening mammography 24 913471 Z12.31 Screening for osteoporosis 015174299 Z13.820 Mild inter mittent asthma 540014978 J45.20 Dr Esteban next apt 02/21/2024 PFT 07/26/2023 Adult heal th examination 759438644 Z00.00 Screening for disorder 748339671 Z13.9 Obesity 219022769 E66.9 More diet and exercise, has been binging on sugars, advised to cut back on carbs and sugars, ear heart healthy nuts and beans and proteins Allergic rhinitis 569608 04 J30.9 Will get on zyrtec and flonase, notify if not better Prediabetes 832265657 R7 3.03 Will start on farxiga 5mg daily, more diet and exercise is needed, states that she has been having a lot of milk shakes [id number] Carloz chang MD [facility] [place] [address] [facility], [place] [address] [place] [address] 02/07/2024 11:32:57 02/07/2024 12:33:44 Essential hypertension 70440902 I10 On amlodipine 5mg dailyOn lisinopril 40mg daily Get labs Screening - NAD 29646799 3 Z13.9 C-scope: Get this, understand s the risks for not doing this test in a timely manner, concern for CRC Mammogram: 12/01/2021 : NegMammogr am: 12/23/2022 : NegMammogr am: 01/26/2024 : Neg PAP: Get this, declines today 02/02/2022 , states that she does not have any uterus and does not want a OB referral, denies any complaints DEXA: 12/01/2021 : Osteopenia , do ca and vit dDEXA: 01/26/2024 Get yearly flu shotGet tdap if not doneShould do penumovax vaccineGet shingrixSh ould do COVID 19 vaccine, follow all CDC guidelines Get RSV vaccine RTC in 4 monthsDo labsER if worseShe did verbalize her understand ing of the above Smoker 51024260 F17.200 LDCT 11/04/2021 : Next in one year Advised to quit! No complaints Coronary arteriosclerosis 84207041 I25.10 Dr Hallman 12/16/2021 : [facility], next in one monthDr Viji 03/30/2022 : F/u in 3 monthsDr Viji 11/24/2022 : F/u in 6 months 01/07/2022 : Stress test: Neg 022: ECHO: EF 55% Chronic ob structive pulmonary disease 10171461 J44.9 On albuterolO n flonase Chronic ki dney disease 869064974 N18.9 On calcitriol On vit d weekly Sees Dr Rosado IJ Pain of ri ght knee joint 1042769112 21270 M25.561 Get a referral to orthoStart on PRN meloxicamD r Yasmin 12/10/2021 Jaron LAINEZ 03/04/2022 Hyperlipidemia 50218839 E78.[address] [facility] [address] Hallman On rosuvastat in 40mg daily Screening for malignant neoplasm of colon 147198524 Z12.11 Liver enzy mes level above reference range 848793510 R74.01 US Liver: 03/03/2023 Get hepatitis panel, GGT and US liver done Screening mammography 24 144641 Z12.31 Screening for osteoporosis 126636234 Z13.820 Mild inter mittent asthma 915004262 J45.20 Dr Esteban next apt 02/21/2024 PFT 07/26/2023 Adult [facility] th examination 049451056 Z00.00 Screening for disorder 236620922 Z13.9 Obesity 059968186 E66.9 More diet and exercise, has been binging on sugars, advised to cut back on carbs and sugars, ear heart healthy nuts and beans and proteins Allergic rhinitis 297038 04 J30.9 Will get on zyrtec and flonase, notify if not better Prediabetes 834368182 R7 3.03 Will start on farxiga 5mg daily, more diet and exercise is needed, states that she has been having a lot of milk shakes Solitary n odule of lung 742496219 R91.1 Dr Esteban 08/22/2023 , next 03/07/2024 CT chest 01/26/2024 : CAD [id number] Geoff Esteban MD [facility] Pulmonolo gy [place] [address] 0 03/07/2024 11:12:48 03/08/2024 12:42:50 Solitary nodule of lung 648989531 R91.1 Mild inter mittent asthma 977632669 J45.20 J44.9 [id number] Carloz chang MD [facility] [address] [place] [address] 1 04/03/2024 14:18:39 04/03/2024 14:51:42 Low back pain 703502679 M54.50 Get on flexerill and meloxicam as needed, all side effects explained to herIf not better will notify and then may need to get Xrays and PT or MDPIf worse go to the ERShe is very appreciati ve to this plan of care [id number] Carloz chang MD [facility] [address] [place] [address], [place] [address] 1 06/21/2024 10:15:07 06/21/2024 10:58:55 Low back pain 923289661 M54.50 Get on flexerill and meloxicam as needed, all side effects explained to herIf not better will notify and then may need to get Xrays and PT or MDPIf worse go to the ERShe is very appreciati ve to this plan of care Essential hypertension 47882115 I10 On amlodipine 5mg dailyOn lisinopril 40mg daily Get labs Screening - NAD 13803408 3 Z13.9 C-scope: Get this, understand s the risks for not doing this test in a timely manner, concern for CRC Mammogram: 12/01/2021 : NegMammogr am: 12/23/2022 : NegMammogr am: 01/26/2024 : Neg PAP: Get this, declines today 02/02/2022 , states that she does not have any uterus and does not want a OB referral, denies any complaints DEXA: 12/01/2021 : Osteopenia , do ca and vit dDEXA: 01/26/2024 Get yearly flu shotGet tdap if not doneShould do penumovax vaccineGet shingrixSh ould do COVID 19 vaccine, follow all CDC guidelines Get RSV vaccine RTC in 4 monthsDo labsER if worseShe did verbalize her understand ing of the above Smoker 51356471 F17.200 LDCT 11/04/2021 : Next in one yearAdvise d to quit!No complaints Coronary arteriosclerosis 79634170 I25.10 Dr Hallman 12/16/2021 : [facility], next in one monthDr Viji 03/30/2022 : F/u in 3 monthsDr Viji 11/24/2022 : F/u in 6 monthsDr Viji 06/24/2023 : F/u in one year 01/07/2022 : Stress test: Neg 022: ECHO: EF 55% Chronic ob structive pulmonary disease 99216557 J44.9 On albuterolO n flonase Chronic ki dney disease 745311802 N18.9 On calcitriol On vit d weekly Sees Dr Alonzo HAYES Pain of ri ght knee joint 4256339488 08621 M25.561 Get a referral to orthoStart on PRN meloxicamSusu Hoffman 12/10/2021 Jaron LAINEZ 03/04/2022 Hyperlipidemia [address]9087 E78.[address] Hallman On rosuvastat in 40mg daily Screening for malignant neoplasm of colon 763411707 Z12.11 Liver enzy mes level above reference range 899485245 R74.01 US Liver: 03/03/2023 Sees JOSE Link last OV 09/16/2023 , does not want to see her, will refer to Dr Metz Screening for osteoporosis 314680824 Z13.820 Mild inter mittent asthma 585666281 J45.20 Dr Esteban next apt 02/21/2024 PFT 07/26/2023 Obesity 003425252 E66.9 More diet and exercise, has been binging on sugars, advised to cut back on carbs and sugars, ear heart healthy nuts and beans and proteins Allergic rhinitis 959090 04 J30.9 Will get on zyrtec and flonase, notify if not better Prediabetes 598740695 R7 3.03 On farxiga 5mg daily, more diet and exercise is needed, states that she has been having a lot of milk shakes Solitary n odule of lung 461137660 R91.1 Dr Esteban 08/22/2023 , next 03/07/2024 CT chest 01/26/2024 : CAD [id number] Carloz chang MD [facility] [address] [facility] [address] [place] [address] 07/10/2024 12:10:30 07/10/2024 12:50:41 Low back pain 578478471 M54.50 On flexerill and meloxicam as needed, all side effects explained to herIf not better will notify and then may need to get Xrays and PT or MDPIf worse go to the ERShe is very appreciati ve to this plan of care Essential hypertension 74232107 I10 On amlodipine 5mg dailyOn lisinopril 40mg daily Get labs Screening - NAD 10925106 3 Z13.9 C-scope: 03/19/2022 : Dr Hernandez repeat in one year Mammogram: 12/01/2021 : NegMammogr am: 12/23/2022 : NegMammogr am: 01/26/2024 : Neg PAP: Get this, declines today 02/02/2022 , states that she does not have any uterus and does not want a OB referral, denies any complaints DEXA: 12/01/2021 : Osteopenia , do ca and vit dDEXA: 01/26/2024 Get yearly flu shotGet tdap if not doneShould do penumovax vaccineGet shingrixSh ould do COVID 19 vaccine, follow all CDC guidelines Get RSV vaccine RTC in 4 monthsDo labsER if worseShe did verbalize her understand ing of the above Smoker 15228857 F17.200 LDCT 11/04/2021 : Next in one yearAdvise d to quit!No complaints Coronary arteriosclerosis 82285299 I25.10 Dr Hallman 12/16/2021 : [facility], next in one monthDr Viji 03/30/2022 : F/u in 3 monthsDr Viji 11/24/2022 : F/u in 6 monthsDr Viji 06/24/2023 : F/u in one year 01/07/2022 : Stress test: Neg 022: ECHO: EF 55% s/p d/c [facility] 06/27/2024 for chest pain Chronic ob structive pulmonary disease 40655981 J44.9 On albuterolO n flonase Chronic ki dney disease 713490998 N18.9 On calcitriol On vit d weekly Sees Dr Alonzo HAYES Pain of ri ght knee joint 3556395688 93253 M25.561 Get a referral to orthoStart on PRN meloxicamD r Yasmin 12/10/2021 Jaron Cody PA 03/04/2022 Hyperlipidemia 69885503 E78.[address] [facility] [address] Hallman On rosuvastat in 40mg daily Screening for malignant neoplasm of colon 962446962 Z12.11 Liver enzy mes level above reference range 399444230 R74.01 US Liver: 03/03/2023 Sees JOSE Link last OV 09/16/2023 , does not want to see her, will refer to Dr Metz Screening for osteoporosis 731043294 Z13.820 Mild inter mittent asthma 548975155 J45.20 Dr Esteban next apt 02/21/2024 PFT 07/26/2023 Obesity 138575103 E66.9 More diet and exercise, has been binging on sugars, advised to cut back on carbs and sugars, ear heart healthy nuts and beans and proteins Allergic rhinitis 402766 04 J30.9 Will get on zyrtec and flonase, notify if not better Prediabetes 139684216 R7 3.03 On farxiga 5mg daily, more diet and exercise is needed, states that she has been having a lot of milk shakes Solitary n odule of lung 560613143 R91.1 Dr Esteban 08/22/2023 , next 03/07/2024 CT chest 01/26/2024 : CAD Health Concerns Section Related Observation LastModified by Organization Detai ls LastModified Time None Recorded Concern Status LastModified by Organization Details LastModified Time None Recorded Advance Directives Directive N: Payers Encounter Date Sequence Insurance Name Policy Number Policy Esteban Covered Member ID Esteban Member ID Guarantor Name 02/07/[address] [facility] (MEDICARE REPLACEMENT/A DVANTAGE - PPO) [id number] Kamille Henderson [id number] Kamille Henderson 02/07/2024 2 [place] [facility] Kamille Henderson [id number] Kamille Henderson 03/07/[address] [facility] (MEDICARE REPLACEMENT/A DVANTAGE - PPO) [id number] Kamille Henderson [id number] Kamille Henderson 03/07/2024 2 [place] [facility] Kamille Henderson [id number] Kamille Henderson 04/03/[address] [facility] (MEDICARE REPLACEMENT/A DVANTAGE - PPO) [id number] Kamille Henderson [id number] Kamille Henderson 04/03/2024 2 [place] [facility] Kamille Henderson [id number] Kamille Henderson 06/21/2024 1 [facility] (MEDICARE REPLACEMENT/A DVANTAGE - PPO) [id number] Kamille Henderson [id number] Kamille Henderson 06/21/2024 2 [place] [facility] Kamille Henderson [id number] Kamille Henderson 07/10/[address] [facility] (MEDICARE REPLACEMENT/A DVANTAGE - PPO) [id number] Kamille Henderson [id number] Kamille Henderson 07/10/2024 2 [place] [facility] Kamille Henderson [id number] Kamille Henderson Notes Date Note Type Note Provider Name and Address Organization Details Recorded Time 02/07/2024 text/html OV 10/29/2021:He re to establish carePast Hx:HTNCOPDSmokerRevi ewed social family and surgical historyFeels well today, wants to get labsOV 02/02/2022:Here for her f/u apt, is doing wellShe did do the labs on 01/28/2022 OV 08/03/2022:Here for her f/u apt and MWV, she is doing very well today, she did do the labs on 07/27/2022 OV 02/01/2023: Here for her f/u apt, she feels well today OV 06/07/2023: Here for her f/u apt, she is doing well today, no new labs noted OV 08/23/2023: Here for her f/u apt, she has noted some dysuria and polyuria since 2-3 days, no hematuria, no fevers or chills no LBP, no new labs OV 10/04/2023: Here for discuss her labs and also some allergy symptoms, she would like to discuss obesity, she admits to eating more sugary treats OV 02/07/2024: Here for her routine apt, she is doing well today Carloz Murphy MD [address] [place] [address], [address], [place] [facility] [employer] 02/09/2024 15:11:50 03/07/2024 text/html Primary care/Referring provider: Carloz Murphy MD Patient is here to go over her mild ACO management. Initial development of shortness of breath: 2017Duration of shortness of breath: 7 yearsCondition of shortness of breath: stableTiming of shortness of breath: noneFrequency: 1 time a monthLimits activities: yesAggravating factors: walkingAlleviating factors: rest Modified [employer] [place] (mMRC) Dyspnea Scale - Grade 2Grade 0 I only get breathless with strenuous exercise .Grade 1 I get short of breath when hurrying on the level or walking up a slight hill .Grade 2 I walk slower than people of the same age on the level because of breathlessness or have to stop for breath when walking at my own pace on the level .Grade 3 I stop for breath after walking about 100 yards or after a few minutes on the level .Grade 4 I am too breathless to leave the house or I am breathless when dressing . Treatment history: Albuterol HFA as needed since 2017, uses once a month Other symptoms:Drooling: noDysarthria: noNeck pain: noOdynophagia: noDysphagia: noWeak mastication: noFacial weakness: noNasal speech: noProtruding tongue: noProductive cough: clearWheezing: noChest tightness: yesOrthopnea: noFrequent throat clearing or swallowing: noPalpitations: noHeartburn: noEdema: no Environmental exposures:Nicotine smoke: 1/2 ppd since 1970 (quit 10 years in between) = 22 pack yearsPaint: noDye: noDust mites: yesMold: noDamp basement: noWood burning stove: noAnimal dander: dogCockroaches: noPollen: yesArsenic: noAsbestos: noBeryllium: noCadmium: noChromium: noCoal smoke: noDiesel fumes: noNickel: noSilica: noSoot: no EPWORTH SLEEPINESS SCALE (ESS) CHANCE OF DOZING SCORE0 = would never doze1 = slight chance of dozing2 = moderate chance of dozing3 = high chance of dozing SITUATION AND CHANCE OF DOZINGSitting and reading - 0Watching television - 0Sitting inactive in a public place (e.g. a theater or meeting) - 0As a passenger in a car for an hour without a break - 0Lying down to rest in the afternoon when circumstances permit - 1Sitting and talking to someone - 0Sitting quietly after lunch without alcohol - 0In a car, while stopped for a few minutes in the traffic - 0TOTAL SCORE 1Subjectively, patient has a slight chance of dozing. Geoff Esteban MD [address] [place] [address], [facility] [address], [place], [address], [place] [facility] [place] [employer] [facility] 03/07/2024 11:59:58 04/03/2024 text/html OV 10/29/2021:He re to establish carePast Hx:Adama ewnadeen social family and surgical historyFeels well today, wants to get labsOV 02/02/2022:Here for her f/u apt, is doing wellShe did do the labs on 01/28/2022 OV 08/03/2022:Here for her f/u apt and MWV, she is doing very well today, she did do the labs on 07/27/2022 OV 02/01/2023: Here for her f/u apt, she feels well today OV 06/07/2023: Here for her f/u apt, she is doing well today, no new labs noted OV 08/23/2023: Here for her f/u apt, she has noted some dysuria and polyuria since 2-3 days, no hematuria, no fevers or chills no LBP, no new labs OV 10/04/2023: Here for discuss her labs and also some allergy symptoms, she would like to discuss obesity, she admits to eating more sugary treats OV 02/07/2024: Here for her routine apt, she is doing well today OV 04/03/2024: Here for ACVC/o LBP since about 3-4 days, states that she did lift a heavy laundry basket, pain in the mid lower back that radiates to the mid back, no leg weakness or LE N/T, no loss of bowel or bladder control Carloz Murphy MD [address] [place] [address], [facility] [address], [place], [address], [place] [facility] [employer] 04/03/2024 14:57:05 06/21/2024 text/html OV 10/29/2021:He re to establish carePast Hx:Adama [facility] social family and surgical historyFeels well today, wants to get labsOV 02/02/2022:Here for her f/u apt, is doing wellShe did do the labs on 01/28/2022 OV 08/03/2022:Here for her f/u apt and MWV, she is doing very well today, she did do the labs on 07/27/2022 OV 02/01/2023: Here for her f/u apt, she feels well today OV 06/07/2023: Here for her f/u apt, she is doing well today, no new labs noted OV 08/23/2023: Here for her f/u apt, she has noted some dysuria and polyuria since 2-3 days, no hematuria, no fevers or chills no LBP, no new labs OV 10/04/2023: Here for discuss her labs and also some allergy symptoms, she would like to discuss obesity, she admits to eating more sugary treats OV 02/07/2024: Here for her routine apt, she is doing well today OV 04/03/2024: Here for ACVC/o LBP since about 3-4 days, states that she did lift a heavy laundry basket, pain in the mid lower back that radiates to the mid back, no leg weakness or LE N/T, no loss of bowel or bladder control OV 06/21/2024: Here for her f/u apt, she feels very well today, she did do her labs Carloz Murphy MD [address] [facility], [place], [address], [place] [employer] 06/21/2024 10:59:45 07/10/2024 text/html OV 10/29/2021:He re to establish carePast Hx:HTNCOPDSmokerRevi ewed social family and surgical historyFeels well today, wants to get labsOV 02/02/2022:Here for her f/u apt, is doing wellShe did do the labs on 01/28/2022 OV 08/03/2022:Here for her f/u apt and MWV, she is doing very well today, she did do the labs on 07/27/2022 OV 02/01/2023: Here for her f/u apt, she feels well today OV 06/07/2023: Here for her f/u apt, she is doing well today, no new labs noted OV 08/23/2023: Here for her f/u apt, she has noted some dysuria and polyuria since 2-3 days, no hematuria, no fevers or chills no LBP, no new labs OV 10/04/2023: Here for discuss her labs and also some allergy symptoms, she would like to discuss obesity, she admits to eating more sugary treats OV 02/07/2024: Here for her routine apt, she is doing well today OV 04/03/2024: Here for ACVC/o LBP since about 3-4 days, states that she did lift a heavy laundry basket, pain in the mid lower back that radiates to the mid back, no leg weakness or LE N/T, no loss of bowel or bladder control OV 06/21/2024: Here for her f/u apt, she feels very well today, she did do her labs, s/p d/c from [facility] for chest pain Carloz Murphy MD [address] [place] [address], [place] [address], [place], [address], [place] [facility] [employer] [facility] 07/10/2024 18:06:17 OBGyn Episode No OBEpisode recorded.
--- OUTSIDE RECORDS SUMMARY | 2024-08-22 10:20 | XMS_ITS | Data Portability ---
Author Organization [facility] [place] Address [address] [place] [address] Care Team Providers Care Local Driver Name Role Phone BANDAR MAC Primary Care Provider [phone] Assessment Encounter Date Assessment Date Assessment LastModified by Organization Details LastModified Time 07/31/2020 07/31/2020 Delightful 65 y/ o F with hx of COPD, HTN, Obesity who presents with L flank pain since approximately 04/04/21. She had several ED visits around that time and was diagnosed with a UTI vs pyelo. She also had a CT A/P done which I am unable to view, but I do have the report, in which is dictated that there is no acute process but there is a 4.6cm left renal cyst. There is also cholelithiasis without stigmata of cholecystitis or obstructive biliary disease. She denies F/C/N/V. No jaundice, no acholic stools, no pruritis, no post-prandial pain, no epigastric or RUQ pain. Her discomfort, albeit gradually decreasing since her eval at an OSH ED in Mar, is wholly located in the left flank - she denies hematuria, dysuria, dyspareunia. She intermittently takes IBU to good clinical effect. 1. Left flank pain, persistent since Mar with very slow improvement. grout machine tender. Axial imaging with evidence of 4.6cm renal cyst. Query urological evaluation for this. 2. No clinical or radiographic evidence of acute biliary disease. I do not believe her complaints are related to her CT finding of gallstones. Discussed signs and symptoms + return precautions. Discussed what an elective laparoscopic cholecystectomy would look like and the inherent risks and benefits. Return to clinic as needed. All questions answered. [email or web address] Not available 08/01/2020 09:55:34 Plan of Treatment Reminders Order Date Submit Date Provider Last Modified By Organization Details Last Modified Time Details Appointments None recorded . Lab None recorded . Referral general surgeon referral 2020 021 carlee Not available 16:21:49 Procedures None recorded . Surgeries None recorded . Imaging None recorded . Medication Orders bupropio n HCl XL 150 mg 24 hr tablet, extended release 2020 [facility] #23449, [address], [place], [place], [id number], 15:50:45 albutero l sulfate HFA 90 mcg/actu ation aerosol inhaler 2020 [facility] #30041, [address], [place], [place], [id number], 14:48:43 fluticas one propiona te 50 mcg/actu ation nasal spray,love spension 2020 [facility] #48858, [address], [place], [place], [id number], 14:48:43 meloxica m 7.5 mg tablet 2020 021 [facility] #11225, [address], [place], [place], [id number], 14:48:41 amlodipi ne 5 mg tablet 2020 021 [facility] #63895, [address], [place], [place], [id number], 09:47:17 lisinopr il 40 mg tablet 2020 021 [facility] #58088, [address], [place], [place], [id number], 1 09:47:56 meloxica m 7.5 mg tablet 2020 021 [facility] #64911, [address], [place], [place], [id number], 1 16:43:13 amlodipi ne 5 mg tablet 2020 021 [facility] #05267, [address], [place], [place], [id number], 1 16:43:10 lisinopr il 40 mg tablet 2020 021 [facility] [place]26275, [address] [place], [id number], 1 16:43:10 meloxica m 7.5 mg tablet 2019 020 [facility] [place]94701, [address] [place], [id number], 0 11:15:04 amlodipi ne 5 mg tablet 2019 020 [facility]49244, [address] [place], [id number], 0 11:15:05 fluticas one propiona te 50 mcg/actu ation nasal spray,love spension 2019 020 [facility] #92109, [address], [place], [place], [id number], 0 11:15:05 albutero l sulfate HFA 90 mcg/actu ation aerosol inhaler 2019 020 [facility] #00349, [address] , [place], [place], [id number], 11:15:04 Patient TargetsNo targets recorded. Patient Instructions Encounter Date Encounter Id Patient Instructions Last Modified By Organization Details Last Modified Time 02/06/2020 [id number] irritable bowel syndrome: care instructions [facility] Not available 02/06/2020 11:14:57 deciding about using medicines to quit smoking [email or web address] Not available 02/06/2020 11:14:58 Quitting Tobacco : Care Instructions si Not available 02/06/2020 11:14:57 learning about high blood pressure si Not available 02/06/2020 11:14:57 chronic obstructive pulmonary disease (COPD): care instructions [facility] Not available 02/06/2020 11:14:58 learning about copd and how to prevent lung infections [facility] Not available 02/06/2020 11:14:57 07/10/2020 [id number] osteoarthritis: care instructions [facility] Not available 07/10/2020 16:43:02 learning about high blood pressure [facility] Not available 07/10/2020 16:43:02 09/12/2020 [id number] irritable bowel syndrome: care instructions [facility] Not available 09/12/2020 14:48:35 deciding about using medicines to quit smoking [facility] Not available 09/12/2020 14:48:35 Quitting Tobacco : Care Instructions [facility] Not available 09/12/2020 14:48:34 chronic obstructive pulmonary disease (COPD): care instructions [facility] Not available 09/12/2020 14:48:34 learning about copd and how to prevent lung infections [facility] Not available 09/12/2020 14:48:34 seasonal allergies: care instructions si Not available 09/12/2020 14:48:34 osteoarthritis: care instructions [facility] Not available 09/12/2020 14:48:35 learning about high blood pressure [facility] Not available 09/12/2020 14:48:34 11/18/2020 [id number] mammogram: about this test [facility] Not available 11/18/2020 15:50:38 Quitting Tobacco : Care Instructions [facility] Not available 11/18/2020 15:50:38 learning about high blood pressure [facility] Not available 11/18/2020 15:50:38 Reason for Referral General Surgeon Referral for Cholelithiasis without obstruction Referring Physician: Bandar Mac, Internal Medicine, Encounter Date: 07/10/2020 Results Created Date Observation Date Name Description Value Unit Range Abnormal Flag Note LastModifiedBy Organization Detail LastModifiedTime 02/14/20 20 02/10/2020 XR, chest , 2 view No observ ation record ed. [facility] Not Available 2019 12:45:31 04/14/20 20 04/05/2020 CT, abdom en + pelvi s, w/ contr ast No observ ation record ed. [facility] Not Available 2019 16:31:32 09/06/19 21 09/05/2020 CT, abdom en + pelvi s, w/o contr ast No observ ation record ed. [facility] ([facility]) [address] [place], [address], 09/05/2020 16:52:42 09/20/19 21 09/19/2020 imagi ng/di agnos tic resul t No observ ation record ed. [facility] ([facility]) [address] [place], [address], 09/19/2020 17:45:53 06/25/19 22 06/25/2021 XR, chest , 2 view No observ ation record ed. [facility] [address] [place], [address], 06/25/2021 18:45:44 07/24/19 22 07/23/2021 XR, chest No observ ation record ed. [facility] [address] [place], [address], 07/24/2021 16:40:32 10/15/19 22 10/13/2021 XR, knee No observ ation record ed. [facility] On [facility] Orders [address] [place], [address], 11/04/2021 14:06:16 12/29/19 22 12/28/2021 trans -thor acic echoc ardio gram (TTE) (PROC ) No observ ation record ed. [email or web address] [facility] [address], [place], [address], 12/31/2021 15:47:41 01/08/20 22 01/07/2022 NM, myoca rdial perfu carroll scan No observ ation record ed. [email or web address] [facility] [address], [place], [address], 01/29/2022 12:29:34 03/24/20 23 03/24/2023 US, doppl er, arter ial No observ ation record ed. [facility] [address], [place], [address], 03/25/2023 18:09:06 Result Notes None recorded. Problems Name Problem SNOMED Code Status Onset Date Resolution Date Notes Provider Name and Address Organization Details Recorded Time Chronic obstructive pulmonary disease 87576134 Active Not Available [facility] 07:20:21 Tobacco dependence syndrome 95923532 Active Not Available [facility] 07:20:21 Obesity 388476678 Active Not Available [facility] 07:20:21 Essential hypertension 35131462 Active Not Available [facility] 07:20:21 Hearing disorder 183529437 Active Not Available [facility] 07:20:21 Vitamin D deficiency 69095262 Active Not Available [facility] 07:20:21 Gallstone 193587868 Active Not Available [facility] 07:20:21 Hematochezia 479805576 Active Not Available [facility] 07:20:21 Vertigo 047009915 Active Not Available [facility] 07:20:21 On examination - edema of legs Active Not Available [facility] 07:20:21 Chronic diarrhea of unknown origin 04940347 Active Not Available [facility] 07:20:21 Tinnitus 94661291 Active Not Available [facility] 07:20:21 Irritable bowel syndrome 97347380 Active Not Available [facility] 07:20:21 Problem Notes None recorded. Procedures Surgical History Date Name Laterality Status Provider Name and Address Organization Details Recorded Time Hysterectomy completed Aviva Da Silva [facility] 1 06/04/2013 16:55:26 Imaging Results Imaging Date Name Status LastModified by Organization Details LastModified Time 02/10/2020 XR, chest, 2 view completed [facility] Informa tion not available 02/14/2020 12:45:31 04/05/2020 CT, abdomen + pelvis, w/ contrast completed [facility] Information not available 04/14/2020 16:31:32 09/05/2020 CT, abdomen + pelvis, w/o contrast completed [facility] ([facility]) [address] [place], [address], 09/05/2020 16:52:42 09/19/2020 imaging/diagnostic result completed [facility] ([facility]) [address] [place], [address], 09/19/2020 17:45:53 06/25/2021 XR, chest, 2 view completed [facility] [address] [place], [address], 06/25/2021 18:45:44 07/23/2021 XR, chest completed [facility] [address] [place], [address], 07/24/2021 16:40:32 10/13/2021 XR, knee completed [facility] [address] [place], [address], 11/04/2021 14:06:16 12/28/2021 trans-thoracic echocardiogram (TTE) (PROC) completed [address] [facility] [address], [place], [address], 12/31/2021 15:47:41 01/07/2022 NM, myocardial perfusion scan completed brucen [facility] [address], [place], [address], 01/29/2022 12:29:34 03/24/2023 US, doppler, arterial completed [facility] [address] [place], [address], 03/25/2023 18:09:06 Procedure Notes None recorded. Medical Equipment None Reported. Allergies No known drug allergies Medications Name Sig Start Date Stop Date Status Note LastModified by Organization Details LastModified Time cyclobenz aprine 10 mg tablet Take 1 tablet as needed by oral route at bedtime for 30 days. 12/14 completed Not Available Not Available Not Available nicotine 14 mg/24 hr daily transderm al patch Apply 1 patch every day by transder mal route for 30 days. 02/24 completed Not Available Not Available Not Available cetirizin e 10 mg tablet 03/21 completed Not Available Not Available Not Available azithromy erick 250 mg tablet 09/13 completed Not Available Not Available Not Available lisinopri l 20 mg tablet TAKE 1 TABLET(S ) EVERY DAY FOR BLOOD PRESSURE 12/14 completed Not Available Not Available Not Available potassium chloride ER 10 mEq tablet,ex tended release Take 1 tablet every day by oral route as directed for 30 days. 02/05 completed Not Available Not Available Not Available metronida zole 500 mg tablet 02/24 completed Not Available Not Available Not Available ciproflox acin 250 mg tablet 02/24 completed Not Available Not Available Not Available amlodipin e 5 mg tablet TAKE 1 TABLET BY MOUTH EVERY DAY active Not Available Not Available No t Available ciproflox acin 500 mg tablet 09/22 completed Not Available Not Available Not Available triamcino lone acetonide 0.1 % topical cream 11/18 completed Not Available Not Available Not Available meloxicam 7.5 mg tablet TAKE 1 TABLET BY MOUTH ONCE DAILY AFTER A MEAL. active Not Available Not Available No t Available oxycodone -acetamin ophen 5 mg-325 mg tablet TAKE 1 TABLET BY MOUTH EVERY 4 TO 6 HOURS NEEDED 11/18 completed Not Available Not Available Not Available amoxicill in 875 mg tablet 02/24 completed Not Available Not Available Not Available dicyclomi ne 20 mg tablet 02/24 completed Not Available Not Available Not Available meclizine 25 mg tablet Take 1 tablet 3 times a day by oral route as needed for 30 days. 02/24 completed Not Available Not Available Not Available phenazopy ridine 100 mg tablet 03/21 completed Not Available Not Available Not Available oseltamiv ir 75 mg capsule Take 1 capsule twice a day by oral route as directed for 5 days. 02/05 completed Not Available Not Available Not Available ranitidin e 150 mg tablet TAKE 1 TABLET TWICE A DAY 12/14 completed Not Available Not Available Not Available lisinopri l 10 mg tablet Take 1 tablet every day by oral route for 30 days. 02/24 completed Not Available Not Available Not Available ibuprofen 400 mg tablet Take 1 tablet 3 times a day by oral route after meals for 10 days. 03/21 completed Not Available Not Available Not Available nicotine 21 mg/24 hr daily transderm al patch Apply 1 patch every day by transder mal route for 30 days. 02/24 completed Not Available Not Available Not Available hydrochlo rothiazid e 12.5 mg capsule Take 1 capsule( s) every day by oral route for 30 days. 08/27 completed Not Available Not Available Not Available cephalexi n 500 mg tablet TK 1 T PO BID 09/12 completed Not Available Not Available Not Available Q-Tussin DM 10 mg-100 mg/5 mL oral syrup 02/24 completed Not Available Not Available Not Available furosemid e 20 mg tablet Take 1 tablet every day by oral route as directed for 30 days. 03/21 completed Not Available Not Available Not Available ibuprofen 600 mg tablet TK 1 T PO TID 07/10 completed Not Available Not Available Not Available methylpre dnisolone 4 mg tablets in a dose pack 09/13 completed Not Available Not Available Not Available albuterol sulfate HFA 90 mcg/actua tion aerosol inhaler INHALE 1 PUFF BY MOUTH FOUR TIMES DAILY NEEDED active Not Available Not Available No t Available lisinopri l 40 mg tablet TAKE 1 TABLET BY MOUTH DAILY DIRECTED active Not Available Not Available No t Available fluticaso ne propionat e 50 mcg/actua tion nasal spray,ana zoe SHAKE LQ AND U 1 SPR IEN QD UTD 2020 active Not Available Not Available Not Avai lable loratadin e 10 mg tablet Take 1 tablet every day by oral route as directed for 30 days. 12/14 completed Not Available Not Available Not Available naproxen 500 mg tablet 02/24 completed Not Available Not Available Not Available amoxicill in 875 mg-potass ium clavulana te 125 mg tablet 02/05 completed Not Available Not Available Not Available amoxicill in 500 mg-potass ium clavulana te 125 mg tablet Take 1 tablet every 12 hours by oral route after meals for 10 days. 06/28 completed Not Available Not Available Not Available nicotine 7 mg/24 hr daily transderm al patch Apply 1 patch every day by transder mal route for 30 days. 02/24 completed Not Available Not Available Not Available bupropion HCl XL 150 mg 24 hr tablet, extended release TAKE 1 TABLET BY MOUTH EVERY DAY DIRECTED active Not Available Not Available No t Available nitrofura ntoin monohydra te/macroc rystals 100 mg capsule 09/12 completed Not Available Not Available Not Available Calcium with Vitamin D3 600 mg (carbonat e)-10 mcg (400 unit) capsule Take 2 capsules every day by oral route for 30 days. 02/24 completed Patient was so instruct ed to take for her vitamin D deficien cy, she understo od and agreed. Not Available Not Available Not Available Vitals Date Recorded Body height Body mass index (BMI) Body weight Heart rate Body temperature Respiratory rate Pain severity - 0-10 verbal numeric rating [Score] - Reported Oxygen saturation Oxygen saturation in Arterial blood by Pulse oximetry Systolic blood pressure Diastolic blood pressure Provider Name and Address Organization Details Last Updated DateTime 1 167.64 cm 40.9 kg/m2 016849. 31 g 78 /min 97.1 [degF] 18 /min 0 96 % 96 % 171 mm[Hg] 89 mm[Hg] Mary Wallace LPN [place] - [facility] 16:30:41 Social History Question Answer Notes LastModified by Organizat ion Details LastModified Time Tobacco Smoking Status Current Every Day Smoker Aviva Da Silva carli [facility] 04/04/2014 16:55:26 What Was The Date Of Your Most Recent Tobacco Screening? 11/18/2020 Information not available 11/18/2020 How Much Tobacco Do You Smoke? 1 PPD Information not available 11/18/2020 Has Tobacco Cessation Counseling Been Provided? Yes Information not available 11/18/2020 On What Date Was Tobacco Cessation Counseling Provided? 11/18/2020 Information not available 11/18/2020 How Many Years Have You Smoked Tobacco? 20 Information not available 11/18/2020 Do You Or Have You Ever Used Any Other Forms Of Tobacco Or Nicotine? No Information not available 11/18/2020 Sex: Unknown Functional Status None recorded. Mental Status None recorded. Family History Relationship Description Onset Age of this Age Resolved Age Notes LastModified by Organization Details LastModified Time Mother Dementia cspiller Not available 04/04/2014 16:55:26 Mother Thyroid disorder screening cspiller Not available 2013 16:55:26 Mother Heart disease cspiller Not available 2013 16:55:26 Mother Hypercholest erolemia cspiller Not available 2013 16:55:26 Medical History Condition Response Coronary Artery Disease N Other N High Blood Pressure N Atrial Fibrillation N Kidney or Bladder Problems N Thyroid Problems N GI Problems N Depression N COPD N Blood Clots N Skin Problems N Anemia N Heart Attack (CT) N Anxiety Disorder N Diabetes N Muscle, Joint, or Bone Problems N Seizures/Epilepsy N Acid Reflux (GERD) N Cancer N Stroke N Asthma N Allergies N High Cholesterol N Hepatitis N Liver Disease N Headaches N Heart Failure N Osteoporosis N Gynecological HistoryNo gynecological history recorded. Obstetrics History GPAL:G 0 P 0 0 0 0 Past Encounters Encounter ID Performer Location Encounter Start Date Encounter Closed Date Diagnosis/Indication Diagnosis SNOMED-CT Code Diagnosis ICD10 Code Diagnosis Note [id number] Brink (Adult Med) [address] [place] [address] [id number] 04/04/2014 16:07:31 04/05/2014 13:46:13 Tinnitus 36385340 Irritable bowel syndrome 16301237 [id number] [place] [facility] (Adult Med) [address] [place] [address] [id number] 05/07/2014 16:36:25 05/08/2014 09:52:42 Chronic diarrhea of unknown origin 28899891 [id number] Kate Michael [facility] (Adult Med) [address] [place] [address] [phone] 07/11/2014 11:33:38 07/11/2014 13:14:19 Irritable bowel syndrome 43857425 Tinnitus 00136925 Chronic di arrhea of unknown origin 31740490 Chronic ob structive pulmonary disease 84419393 Tobacco de pendence syndrome 85691960 Adult heal th examination 234636859 Screening for malignant neoplasm of colon 905957403 Obesity 924229195 [id number] Aviva Bearden Tristan (Adult Med) [address] [place] [address] [id number] 11/29/2014 10:25:57 11/29/2014 13:34:56 Chronic obstructive pulmonary disease 56750318 Irritable bowel syndrome 50807949 Obesity 143636542 Tobacco de pendence syndrome 98552677 Chronic di arrhea of unknown origin 81895049 Essential hypertension 30673238 Hearing disorder 138050710 Vitamin D deficiency 45533893 [id number] MD Tristan Escalante (Adult Med) [address] [place] [address] [id number] 03/03/2015 09:39:12 03/03/2015 12:07:22 Essential hypertension 37660282 I10 Chronic ob structive pulmonary disease 46538243 J44.9 Tobacco de pendence syndrome 88124916 F17.290 Vitamin D deficiency 347 27830 E55.9 Obesity 130697489 E66.9 Gallstone 666452712 K80. 20 [id number] MD Tristan Escalante (Adult Med) [address] [place] [address] [id number] 0 05/22/2015 09:37:22 05/22/2015 18:05:59 Hematochezia 137353234 K92.1 Chronic ob structive pulmonary disease 35984184 J44.9 Essential hypertension 68888993 I10 Hearing disorder 5861968 05 H91.93 Irritable bowel syndrome 08860781 K58.9 Vitamin D deficiency 347 40117 E55.9 Tobacco de pendence syndrome 65665385 F17.290 [id number] Jae Gerard Tristan (Adult Med) [address] [place] [address] [id number] 09/02/2015 09:39:53 09/02/2015 10:53:59 Chronic obstructive pulmonary disease 69202623 J44.9 Essential hypertension 42474044 I10 Hematochezia 213962497 K 92.1 Vitamin D deficiency 347 33741 E55.9 Tobacco de pendence syndrome 26398256 F17.290 Vertigo 461221666 R42 [id number] MD Tristan Escalante (Adult Med) [address] [place] [address] [id number] 11/04/2015 10:01:47 11/04/2015 10:46:57 Essential hypertension 63969689 I10 Chronic ob structive pulmonary disease 54213395 J44.9 Tobacco de pendence syndrome 41051260 F17.290 On examina tion - edema of legs 465692442 R60.0 [id number] MD Tristan Escalante (Adult Med) [address] [place] [address] [id number] 12/05/2015 11:55:06 12/05/2015 13:02:09 [id number] MD Tristan Escalante (Adult Med) [address] [place] [address] [id number] 03/05/2016 11:37:35 03/05/2016 14:23:56 Essential hypertension 12348664 I10 Vitamin D deficiency 347 09927 E55.9 Obesity 176746878 E66.9 Chronic ob structive pulmonary disease 98635664 J44.9 Hypertensive disorder 38 274384 I10 [id number] TENNILLE Cano (Adult Med) [address] [place] [address] [id number] 08/27/2016 11:34:07 08/27/2016 13:22:15 Essential hypertension 11782569 I10 Low salt diet, exercise and lose weight. Chronic ob structive pulmonary disease 27228706 J44.9 Stable. Tobacco de pendence syndrome 54554315 F17.290 She is trying to quit. Vitamin D deficiency 347 19234 E55.9 She is on the OTC calcium/vi tamin D, but some times she has no money to buy it. Gallstone 396586737 K80. 20 Asymptomat ic, stable. [id number] [facility] [address] [place] [address] [id number] 02/24/2017 10:06:27 02/24/2017 11:24:20 Mammography abnormal 883466666 R92.8 Essential hypertension 86342398 I10 Low salt diet, exercise and lose weight. Vitamin D deficiency 347 57542 E55.9 She is on the OTC calcium/vi tamin D, but some times she has no money to buy it. Chronic ob structive pulmonary disease 14818430 J44.9 [id number] [facility] [address] [place] [address] [id number] 09/22/2017 11:51:53 09/22/2017 12:42:39 Essential hypertension 31257658 I10 Low salt diet, exercise and lose weight. will increase lisinopril from 10 mg to 20 mg/day to achieve better BP controlled . Discussed with patient , she understood and agreed. Pain in wrist 54905328 M 25.532 Acute sinusitis 03891492 J01.90 Chronic ob structive pulmonary disease 42818519 J44.9 Stable. Nicotine dependence 5629 4008 F17.200 Morbid obesity 297396971 E66.01 Diet, exercise and lose weight. [id number] MD Tristan Escalante (Adult Med) [address] [place] [address] [id number] 11/29/2017 17:02:39 12/01/2017 09:25:37 Pain of left wrist 8541400151 55908 M25.554 [id number] MD Tristan Escalante (Adult Med) [address] [place] [address] [id number] [id number] 02/16/2018 14:44:12 02/16/2018 16:25:16 Pain in wrist 41305406 M25.532 UNDER THE CARE OF HER ORTHOPEDIC DOCTOR Hank FRIAS, SHE RADHA RE-SCHEDUL E. Essential hypertension 43011115 I10 Low salt diet, exercise and lose weight. will increase lisinopril from 10 mg to 20 mg/day to achieve better BP controlled . Discussed with patient , she understood and agreed. DUE TO STRESSFUL WORKING ENVIRONMEN T, SHE GREED THE 40 MG OF LISINOPRIL INSTEAD OF 2 O MG/DAY. Contusion of lower leg 19855279 S80.10XA HEATING PAD, REST NEEDED,. Screening mammography 24 962701 Z12.31 ANNULAR EVENT. [id number] Bandar Mac MD [facility] (Adult Med) [address] [place] [address] [phone] 06/01/2018 16:59:11 06/01/2018 18:10:58 Essential hypertension 58436557 I10 Low salt diet, exercise and lose weight. will increase lisinopril from 10 mg to 20 mg/day to achieve better BP controlled . Discussed with patient , she understood and agreed. DUE TO STRESSFUL WORKING ENVIRONMEN T, SHE GREED THE 40 MG OF LISINOPRIL INSTEAD OF 2 O MG/DAY. Discussed with patient, she agreed to add amlodipine . [id number] Bandar Mac MD [facility] (Adult Med) [address] [place] [address] [phone] 09/13/2018 16:42:46 09/13/2018 17:15:33 Chronic obstructive pulmonary disease 08736579 J44.9 Stable. Essential hypertension 98480703 I10 Low salt diet, exercise and lose weight. will increase lisinopril from 10 mg to 20 mg/day to achieve better BP controlled . Discussed with patient , she understood and agreed. DUE TO STRESSFUL WORKING ENVIRONMEN T, SHE GREED THE 40 MG OF LISINOPRIL INSTEAD OF 2 O MG/DAY. Discussed with patient, she agreed to add amlodipine . Tobacco de pendence syndrome 84513335 F17.290 She is trying to quit. Pain in wrist 06108869 M 25.532 UNDER THE CARE OF HER ORTHOPEDIC DOCTOR Hank FRIAS, SHE RADHA RE-SCHEDUL E. Better., but still needs refills of meloxicam. Seasonal allergy 4700535 04 J30.2 Nicotine dependence 5629 4008 F17.351 [id number] MD [facility] (Adult Med) [address] [place] [address] 12/14/2018 16:32:54 12/14/2018 18:00:10 Essential hypertension 36533633 I10 Low salt diet, exercise and lose weight. will increase lisinopril from 10 mg to 20 mg/day to achieve better BP controlled . Discussed with patient , she understood and agreed. DUE TO STRESSFUL WORKING ENVIRONMEN T, SHE GREED THE 40 MG OF LISINOPRIL INSTEAD OF 2 O MG/DAY. Discussed with patient, she agreed to add amlodipine . Edema of l ower extremity 534470505 R60.0 Low salt diet, Discussed with ppatient. [id number] MD [facility] (Adult Med) [address] [place] [address] [phone] 03/21/2019 11:57:13 03/22/2019 09:09:31 Acute sinusitis 39012455 J01.90 Discussed with patient. Chronic ob structive pulmonary disease 62292801 J44.9 Stable. Nicotine dependence 5629 4008 F17.200 Degenerati ve joint disease involving multiple joints 636023666 M15.9 [id number] MD [facility] Escal[facility] (Adult Med) [address] [place] [phone] 06/28/2019 12:04:47 06/28/2019 13:09:34 Essential hypertension 14624717 I10 Low salt diet, exercise and lose weight. will increase lisinopril from 10 mg to 20 mg/day to achieve better BP controlled . Discussed with patient , she understood and agreed. DUE TO STRESSFUL WORKING ENVIRONMEN T, SHE GREED THE 40 MG OF LISINOPRIL INSTEAD OF 2 O MG/DAY. Discussed with patient, she agreed to add amlodipine . Screening mammography 24 533215 Z12.31 ANNULAR EVENT. Degenerati ve joint disease involving multiple joints 945770556 M15.9 Stable, [place] [address] , wanting refill meloxicam. Morbid obesity 089176139 E66.01 Diet, exercise and lose weight. [id number] MD Tr[facility] Escal[facility] (Adult Med) [address] [place] [address] [phone] 07/06/2019 09:57:02 07/09/2019 08:53:38 Influenza caused by Influenza A virus 387104012 J09.X2 [id number] Bandar Mac MD [facility] (Adult Med) [address] [place] [phone] 02/06/2020 08:09:59 02/07/2020 10:33:20 Chronic obstructive pulmonary disease 97978712 J44.9 Stable. Essential hypertension 27571522 I10 Low salt diet, exercise and lose weight. will increase lisinopril from 10 mg to 20 mg/day to achieve better BP controlled . Discussed with patient , she understood and agreed. DUE TO STRESSFUL WORKING ENVIRONMEN T, SHE GREED THE 40 MG OF LISINOPRIL INSTEAD OF 2 O MG/DAY. Discussed with patient, she agreed to add amlodipine . Hearing disorder 1313534 05 H91.93 Stable. Irritable bowel syndrome 24583014 K58.9 Same, stable. Tobacco de pendence syndrome 18366252 F17.290 She is trying to quit. On examina tion - edema of legs 971059595 R60.0 Stable. Degenerati ve joint disease involving multiple joints 091449125 M15.9 Stable, [address] , wanting refill meloxicam. [id number] Bandar Mac MD [facility] (Adult Med) [address] [place] [phone] 07/10/2020 08:22:44 07/11/2020 20:33:53 Cholelithiasis without obstruction 87356894 K80.20 Discussed with patient, she agreed to consult surgeon. Essential hypertension 78468208 I10 Low salt diet, exercise and lose weight. will increase lisinopril from 10 mg to 20 mg/day to achieve better BP controlled . Discussed with patient , she understood and agreed. DUE TO STRESSFUL WORKING ENVIRONMEN T, SHE GREED THE 40 MG OF LISINOPRIL INSTEAD OF 2 O MG/DAY. Discussed with patient, she agreed to add amlodipine . Degenerati ve joint disease involving multiple joints 406091308 M15.9 Stable, [address] , wanting refill meloxicam. [id number] Real St[facility] [address] [place] [phone] 07/31/2020 16:19:54 08/01/2020 08:15:27 Left flank pain 396670381 R10.862 [id number] Bandar Mac MD [facility] (Adult Med) [address] [place] [address] [phone] 09/12/2020 08:22:32 09/15/2020 10:43:17 Chronic obstructive pulmonary disease 40663999 J44.9 Stable. Essential hypertension 36692620 I10 Low salt diet, exercise and lose weight. will increase lisinopril from 10 mg to 20 mg/day to achieve better BP controlled . Discussed with patient , she understood and agreed. DUE TO STRESSFUL WORKING ENVIRONMEN T, SHE GREED THE 40 MG OF LISINOPRIL INSTEAD OF 2 O MG/DAY. Discussed with patient, she agreed to add amlodipine . Gallstone 527419931 K80. 20 Asymptomat ic, stable. Under the care of her general. surgeon . Hearing disorder 3346246 05 H91.93 Stable. Irritable bowel syndrome 96057340 K58.9 Same, stable. Tobacco de pendence syndrome 84345662 F17.290 She is trying to quit. Vitamin D deficiency 347 70462 E55.9 She is on the OTC calcium/vi tamin D, but some times she has no money to buy it. Degenerati ve joint disease involving multiple joints 234692890 M15.9 Stable, [address] , wanting refill meloxicam. Seasonal allergy 0777166 04 J30.2 Some controll by using spray. [id number] Bandar Mac MD [facility] (Adult Med) [address] [place] [address] [phone] 11/18/2020 08:51:31 11/20/2020 12:33:13 Screening mammography 19079844 Z12.31 ANNULAR EVENT. Smoker 05200491 F17.200 Will [id number] e bupropion as she asks. Essential hypertension 38228765 I10 Low salt diet, exercise and lose weight. will increase lisinopril from 10 mg to 20 mg/day to achieve better BP controlled . Discussed with patient , she understood and agreed. DUE TO STRESSFUL WORKING ENVIRONMEN T, SHE GREED THE 40 MG OF LISINOPRIL INSTEAD OF 2 O MG/DAY. Discussed with patient, she agreed to add amlodipine . On amlodipine 5 mg/day and lisinopril 40 mg/day, just got refills of both medication s. 11-18-2020 she said. Health Concerns Section Related Observation LastModified by Organization Detai ls LastModified Time None Recorded Concern Status LastModified by Organization Details LastModified Time None Recorded Advance Directives Directive None Recorded Payers Encounter Date Sequence Insurance Name Policy Number Policy Esteban Covered Member ID Esteban Member ID Guarantor Name 02/06/2020 3 [facility] PRIOR TO 11/13/2020 (MEDICAID REPLACEMENT - HMO) Kamille Wang [id number] Kamille Wang 07/10/2020 3 [facility] PRIOR TO 11/13/2020 (MEDICAID REPLACEMENT - HMO) Kamille Wang [id number] Kamille Wang 07/31/2020 3 [facility] PRIOR TO 11/13/2020 (MEDICAID REPLACEMENT - HMO) Kamille Wang [id number] Kamille Wang 09/12/2020 1 [facility] (MEDICARE REPLACEMENT/AD VANTAGE - HMO) [id number] Kamille Wang [id number] Kamille Wang 09/12/2020 2 [place] WHEN [place]ARE OR MEDICARE REPLACEMENT PRIMARY) Kamille Wang [id number] Kamille Wang 11/18/2020 1 [facility] (MEDICARE REPLACEMENT/AD VANTAGE - HMO) [id number] Kamille Wang [id number] Kamille Wang 11/18/2020 2 [place]ARE OR MEDICARE REPLACEMENT PRIMARY) Kamille Wang [id number] Kamille Wang Notes Date Note Type Note Provider Name and Address Organization Details Recorded Time 02/06/2020 text/html This is phone vi sit, due to rosado virus pandemic, she understood and agreed, NKDA, history of copd,, hypertension, hearing disorder, IBS, obesity and tobacco dependence, wants to refill all medications. Bandar Mac MD Attn: Accounting[address] [facility], [place], [address], [facility] 02/06/2020 11:16:24 07/10/2020 text/html This is phone vi sit, due to coronavirus pandemic, she understood and agreed, 1, History of gall stone, bothers her off and on, will consider general surgeon referral, 2. Hypertension. 3. Arthritis, wants refill medications for these problemS, NKDA. Bandar Mac MD Attn: [address] , [place], [address], [facility] 07/10/2020 16:43:09 07/31/2020 text/html Delightful 65 y/ o F with hx of COPD, HTN, Obesity who presents with L flank pain since approximately 04/04/21. She had several ED visits around that time and was diagnosed with a UTI vs pyelo. She also had a CT A/P done which I am unable to view, but I do have the report, in which is dictated that there is no acute process but there is a 4.6cm left renal cyst. There is also cholelithiasis without stigmata of cholecystitis or obstructive biliary disease. She denies F/C/N/V. No jaundice, no acholic stools, no pruritis, no post-prandial pain, no epigastric or RUQ pain. Her discomfort, albeit gradually decreasing since her eval at an OSH ED in [place], is wholly located in the left flank - she denies hematuria, dysuria, dyspareunia. She intermittently takes IBU to good clinical effect. Real Starr MD [address] [facility], [place], [address], [facility] 08/01/2020 09:55:40 09/12/2020 text/html Phone visit, due to rosado virus pandemic, she understood and agreed, NKDA, history of COPD, hypertension, hearing disorder. , IBS, obesity, tobacco dependence syndrome, and vitamin D deficiency. Her surgeon still running test, such U/S of gall bladder , will have gall bladder operation in the near future. Bandar Mac MD Attn: Accounting[address] [facility], [place], [address], [facility] 09/12/2020 14:48:42 11/18/2020 text/html Phone visit, due to rosado virus pandemic, she understood and agreed, NKDA, just got refills of amlodipine and lisinopril, but wants: 1. Annual mammogram. 2. Quiting cigarettes smoking , asking bupropion. Bandar Mac MD Attn: Accounting[address] [facility], [place], [address], [facility] 11/18/2020 15:51:20 OBGyn Episode No OBEpisode recorded.
--- OUTSIDE RECORDS SUMMARY | 2024-08-22 10:20 | XMS_ITS ---
Author Organization [facility] Office Address [address] [facility] [address] [facility] [[email or web address]] G[address] [place] [address] Care Team Providers Care Treatment Specialist Name Role Phone Alonzo Ricky Unavailable [phone] MEDICATIONS Medication SIG (Take, Route, Frequency, Duration) Notes Start Date End Date Status Vitamin D (Ergocalciferol) 1.25 MG (75271 UT) TAKE 1 CAPSULE BY MOUTH 1 TIME A WEEK for 91 Active Calcitriol 0.25 MCG 1 capsule Orally griffin ry other day for 90 05/20/2023 Active amLODIPine Besylate 5 MG TAKE 1 TABLET B Y MOUTH EVERY DAY for 90 Active Albuterol Sulfate HFA 108 (90 Base) MCG/ACT INHALE 1 PUFF BY MOUTH FOUR TIMES DAILY NEEDED for 50 Active amLODIPine Besylate 10 MG 1 tablet Orall y Once a day for 90 days 02/24/2022 Active SOCIAL HISTORY Sex Assigned At : Social History Observation Description Sex Assigned At Female Encounters Encounter Location Date Provider Diagnosis [facility] [address] [facility] [address] [place] [address] 06/06/2024 Ricky Rosado Chronic kidney disease, stage 3a N18.31 ; 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.22 ; Obesity, unspecified E66.9 and Bacteriuria R82.71 ASSESSMENTS Encounter Date Diagnosis Assessment Notes Treatment Notes Treatment Clinical Notes Section Notes 06/06/2024 Chronic kidney disease, stage 3a (ICD-10 - N18.31) 06/06/2024 Type 2 diabetes mellitus with diabetic chronic kidney disease (ICD-10 - E11.22) 06/06/2024 Obesity, unspecified (ICD-10 - E66.9) 06/06/2024 Bacteriuria (ICD-10 - R82.71) PLAN OF TREATMENT Next Appt Details Provider Name:Ricky Rosado , 10/05/2024 01:15:00 PM, [address] [facility], [facility] [[email or web address]] [address], [place], [address], Progress Notes * TERESA HENDERSONDOB:1955 ( 69 yo F)Acc No.[id number]:06/06/2024 Progress Notes Patient: TERESA HENDERSON Provider: MD AIMEE, Lily.P, F.A.S.N. :1955 Age:68 Y Sex:Female Date:06/06/2024 Address:[address] [place] [address] Subjective: * Chief Complaints: * * Medical History: * Medications: Taking amLODIPine Besylate 10 MG Tablet 1 tablet Orally Once a day , Taking Albuterol Sulfate HFA 108 (90 Base) MCG/ACT Aerosol Solution INHALE 1 PUFF BY MOUTH FOUR TIMES DAILY NEEDED , Taking Calcitriol 0.25 MCG Capsule 1 capsule Orally every other day , Taking amLODIPine Besylate 5 MG Tablet TAKE 1 TABLET BY MOUTH EVERY DAY , Taking Vitamin D (Ergocalciferol) 1.25 MG (76229 UT) Capsule TAKE 1 CAPSULE BY MOUTH 1 TIME A WEEK Objective: Assessment: * Assessment: 1. Chronic kidney disease, stage 3a - N18.31 (Primary) 2. Type 2 diabetes mellitus with diabetic chronic kidney disease - E11.22 3. Obesity, unspecified - E66.9 4. Bacteriuria - R82.71 Plan: * Treatment: * Billing Information: * Visit Code: 83314 Office Visit, Est Pt., Level 4. * Procedure Codes: * Sign off status: Pending * Provider: MD AIMEE, Honorio.Allison.C.P, F.A.S.N. Date: 06/06/2024
--- OUTSIDE RECORDS SUMMARY | 2024-08-22 10:20 | XMS_ITS | Clinical Summary ---
Author Organization [facility] Address [address] [place] [address] Care Team Providers Care Label Cutter Name Role Phone Unavailable Primary Care Provider Unavailabl e Social History Tobacco Use Types Packs/Day Years Used Date Smoking Tobacco: Never Assessed Comments Unknown Sex and Gender Information Value Date Recorded Sex Assigned at Not on file Legal Sex Female 7:46 AM CDT Gender Identity Not on file Sexual Orientation Not on file Plan of Treatment Health Maintenance Due Date Last Done Comments Colorectal Cancer Screening Colonoscopy (10 Years) 1955 Hepatitis C 07/13/1973 DTaP, Tdap and Td Vaccines ( 1 - Tdap) 07/13/1974 Mammogram Screening 1995 Zoster Vaccines (1 of 2) 07/13/2005 Dexa Scan (General) 07/13/2020 Pneumococcal Vaccine: 65+ Ye ars (1 of 1 - PCV) 07/13/2020 COVID-19 Vaccine ( - 2023-2 5 season) 2024 RSV Immunization or 60+ Years (1 - 1-dose 75+ series) 07/13/2030 Meningococcal B Vaccine Aged Out No l onger eligible based on patient's age to complete this topic Meningococcal Vaccine Aged Out No radha bob eligible based on patient's age to complete this topic RSV Immunizations Under 20 Months Aged Out No longer eligible based on patient's age to complete this topic
--- OUTSIDE RECORDS SUMMARY | 2024-08-22 10:21 | XMS_ITS | Patient Health Record ---
Author Organization [facility] Office Address [address] [facility] [address] [place] [address] [place] [address] Care Team Providers Care Drug Safety Scientist Name Role Phone Ricky Rosado Unavailable [phone] REASON FOR REFERRAL No Information MEDICATIONS Medication SIG (Take, Route, Frequency, Duration) Notes Start Date End Date Status Vitamin D (Ergocalciferol) 1.25 MG (46725 UT) TAKE 1 CAPSULE BY MOUTH 1 TIME A WEEK for Active amLODIPine Besylate 5 MG TAKE 1 TABLET B Y MOUTH EVERY DAY for 90 Active Calcitriol 0.25 MCG 1 capsule Orally grififn ry other day for 05/20/2023 Active Albuterol Sulfate HFA 108 (90 Base) MCG/ACT INHALE 1 PUFF BY MOUTH FOUR TIMES DAILY NEEDED for 50 Active Farxiga 10 MG 1 tablet Orally Once a day for 90 08/01/2024 04/27/2025 Active amLODIPine Besylate 10 MG 1 tablet Orall y Once a day for 90 days 02/24/2022 Active SOCIAL HISTORY Sex Assigned At : Social History Observation Description Sex Assigned At Female PROBLEMS Problem Type ICD Code Onset Dates Problem Status W/U Status Risk SNOMED Code Notes Problem Anemia, unspecified (D64.9) Active confirmed Anemia (713802904) Problem Type 2 diabetes mellitus with diabetic chronic kidney disease (E11.22) Active confirmed Diabetic renal disease (868307354) Problem Obesity, unspecified (E66.9) Active confirmed Obesity (029369556) Problem Hypervitaminosis D (E67.3) Active confirmed Hypervitaminosi s D (78730435) Problem Nicotine dependence, unspecified, uncomplicated (F17.200) Active confirmed Tobacco user (884377742) Problem Renal osteodystrophy (N25.0) Active confirmed Renal osteodyst rophy (88605566) Problem Secondary hyperparathyroidism of renal origin (N25.81) Active confirmed Secondary hyperparathyroidism of renal origin (68819146) Problem Essential hypertension (I10) Active confirmed Essential hypertension (02912804) Problem Chronic kidney disease, stage 3a (N18.31) Active confirmed Chronic kidney disease stage 3A (disorder) (554899102) Encounters Encounter Location Date Provider Diagnosis [facility] [address] [place] [address] 10/28/2023 Ricky Rosado Chronic kidney disea se, stage 3a N18.31 ; Essential hypertension I10 ; Renal osteodystrophy N25.0 and Obesity, unspecified E66.9 [facility] [address] [place] [address] 01/13/2024 Ricky Rosado Chronic kidney disea se, stage 3b N18.32 ; 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.22 ; Essential hypertension I10 ; Renal osteodystrophy N25.0 and Obesity, unspecified E66.9 [facility] [address] [place] [address] 03/21/2024 Ricky Rosado Chronic kidney disea se, stage 3a N18.31 ; Essential hypertension I10 ; Renal osteodystrophy N25.0 ; Obesity, unspecified E66.9 ; 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.22 and Chronic kidney disease, stage 3b N18.32 [facility] [address] [place] [address] 06/06/2024 Ricky Rosado Chronic kidney disea se, stage 3a N18.31 ; 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.22 ; Obesity, unspecified E66.9 and Bacteriuria R82.71 [facility] [address] [place] [address] 08/01/2024 Ricky Rosado Chronic kidney disea se, stage 3a N18.31 ; Essential hypertension I10 ; Renal osteodystrophy N25.0 ; Secondary hyperparathyroidism of renal origin N25.81 ; Obesity, unspecified E66.9 ; 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.22 ; Anemia, unspecified D64.9 ; Nicotine dependence, unspecified, uncomplicated F17.200 and Hypervitaminosis D E67.3 [facility] [address] [place] [address] 08/01/2024 Ricky Rosado ASSESSMENTS Encounter Date Diagnosis Assessment Notes Treatment Notes Treatment Clinical Notes Section Notes 10/28/2023 Chronic kidney disea se, stage 3a (ICD-10 - N18.31) 01/13/2024 Chronic kidney disea se, stage 3b (ICD-10 - N18.32) 03/21/2024 Essential hypertensi on (ICD-10 - I10) 03/21/2024 Chronic kidney disea se, stage 3a (ICD-10 - N18.31) 06/06/2024 Type 2 diabetes mellitus with diabetic chronic kidney disease (ICD-10 - E11.22) 06/06/2024 Chronic kidney disea se, stage 3a (ICD-10 - N18.31) 08/01/2024 Chronic kidney disea se, stage 3a (ICD-10 - N18.31) 08/01/2024 Essential hypertensi on (ICD-10 - I10) 06/06/2024 Obesity, unspecified (ICD-10 - E66.9) 03/21/2024 Renal osteodystrophy (ICD-10 - N25.0) 10/28/2023 Essential hypertensi on (ICD-10 - I10) 01/13/2024 Type 2 diabetes mellitus with diabetic chronic kidney disease (ICD-10 - E11.22) 10/28/2023 Renal osteodystrophy (ICD-10 - N25.0) 01/13/2024 Essential hypertensi on (ICD-10 - I10) 03/21/2024 Obesity, unspecified (ICD-10 - E66.9) 06/06/2024 Bacteriuria (ICD-10 - R82.71) 08/01/2024 Renal osteodystrophy (ICD-10 - N25.0) 08/01/2024 Secondary hyperparathyroidism of renal origin (ICD-10 - N25.81) 01/13/2024 Renal osteodystrophy (ICD-10 - N25.0) 03/21/2024 Type 2 diabetes mellitus with diabetic chronic kidney disease (ICD-10 - E11.22) 10/28/2023 Obesity, unspecified (ICD-10 - E66.9) 01/13/2024 Obesity, unspecified (ICD-10 - E66.9) 03/21/2024 Chronic kidney disea se, stage 3b (ICD-10 - N18.32) 08/01/2024 Obesity, unspecified (ICD-10 - E66.9) 08/01/2024 Type 2 diabetes mellitus with diabetic chronic kidney disease (ICD-10 - E11.22) 08/01/2024 Anemia, unspecified (ICD-10 - D64.9) 08/01/2024 Nicotine dependence, unspecified, uncomplicated (ICD-10 - F17.200) 08/01/2024 Hypervitaminosis D (ICD-10 - E67.3) PLAN OF TREATMENT Next Appt Details Provider Name:Ricky Rosado , 10/05/2024 01:15:00 PM, [address], [facility] [address], [place], [address],
--- OUTSIDE RECORDS SUMMARY | 2024-08-22 10:21 | XMS_ITS | CONTINUITY OF CARE DOCUMENT ---
Author Name marivelshaun marivelshaun Address Unknown Organization [facility] Address [address] [facility] [address] [place] [address] Phone [phone] Care Team Providers Care American Indian Policy Specialist Name Role Phone Wyatt Hallman MD Unavailable [phone] Wyatt Hallman MD Unavailable CARLOZ LARA MD Unavailable PROBLEMS Condition Status Date Provider Notes Hypertension active Wyatt Hallman MD Hyperlipidemia active Wyatt Hallman MD Hypercholesterolemia active Wyatt chang MD HTN essential active Wyatt Hallman MD Tobacco abuse active Wyatt Hallman MD Arthritis - osteo active Wyatt Cristobal Chest pain-type to be determined active Rajesh Hallman MD Cardiology examination active Wyatt archer MD ENCOUNTERS Date Type Provider Location Encounter Diag nosis - In-person encounter Office Visit Wyatt Hallman MD [facility] - In-person encounter Office Visit Wyatt Hallman MD [facility] - In-person encounter Office Visit Wyatt Hallman MD [facility] HyperlipidemiaHypertension - In-person encounter Office Visit Wyatt Hallman MD [facility] HTN essentialHypercholesterolemia - In-person encounter Office Visit Wyatt Hallman MD [facility] Cardiology examinationChest pain-type to be determinedArthritis - osteoTobacco abuse VITAL SIGNS Date Observation Value Provider Body Mass Index (Ratio) 39.30 kg/m2 Tricia Hallman MD blood pressure, diastolic 70 mm[Hg] [facility], systolic 113 mm[Hg] Aline [facility] oxygen saturation, oximetry 99 % [facility] pulse rate 63 /min [facility] respiratory rate E&M 12 /min [facility] weight E&M 229 [lb_av] Azra [facility] height E&M 64 [in_i] [facility] blood pressure, cuff size regular yuan [place] Body Mass Index (Ratio) 39.82 kg/m2 Nimesh page Ralph blood pressure, diastolic 76 mm[Hg] Kym toddLogalesha blood pressure, systolic 142 mm[Hg] Feli Lewogalesha blood pressure, cuff size regular Anton rret blood pressure, diastolic 76 mm[Hg] Ja rret blood pressure, systolic 142 mm[Hg] Jar ret pulse rate 57 /min Antonio oxygen saturation, oximetry 97 % respiratory rate E&M 12 /min Antonio weight E&M 232 [lb_av] Antonio y height E&M 64 [in_i] Antonio y Body Mass Index (Ratio) 38.96 kg/m2 Tricia Hallman MD blood pressure, diastolic 67 mm[Hg] Kym nkLogic blood pressure, systolic 137 mm[Hg] Feli kLogic blood pressure, cuff size regular Ja blood pressure, diastolic 67 mm[Hg] Ja rret blood pressure, systolic 137 mm[Hg] Honey ret pulse rate 80 /min Antonio y oxygen saturation, oximetry 97 % Antonio respiratory rate E&M 12 /min Antonio weight E&M 227 [lb_av] Antonio y height E&M 64 [in_i] Antonio y Body Mass Index (Ratio) 42.56 kg/m2 Tricia Hallman MD blood pressure, diastolic 67 mm[Hg] Abdelrahman Garcia blood pressure, systolic 104 mm[Hg] Catalino gustavo Garcia respiratory rate E&M 16 /min Mary Garcia blood pressure, cuff size large Abdelrahman Garcia oxygen saturation, oximetry 100 % Victoria Garcia pulse rate 70 /min Victoria araon weight E&M 248 [lb_av] Victoria aaron height E&M 64 [in_i] Victoria aaron Body Mass Index (Ratio) 42.74 kg/m2 Tricia Hallman MD blood pressure, diastolic 81 mm[Hg] Sa ra Stinson blood pressure, systolic 131 mm[Hg] Abhijit a Stinson respiratory rate E&M 18 /min Cara Si ms oxygen saturation, oximetry 98 % Cara Stinson pulse rate 78 /min Cara Stinson blood pressure, cuff size large Sa ra Stinson weight E&M 249 [lb_av] Cara Stinson height E&M 64 [in_i] Cara Stinson ALLERGIES Allergy Name Onset Date Reaction Criticality Status MICROBIT High Criticality active HISTORY OF MEDICATION USE Medication Status Instructions Dates Provider Indications Com ments rosuvastatin 40 mg tablet active TAKE 1 TABLET BY MOUTH EVERY DAY Wyatt Hallman MD calcitriol 0.25 mcg capsule active TAKE 1 CAPSULE BY MOUTH EVERY OTHER DAY Wyatt Hallman MD albuterol sulfate 90 mcg/actuation HFA aerosol inhaler active INHALE 2 PUFFS BY MOUTH FOUR TIMES DAILY NEEDED Wyatt Hallman MD meloxicam 7.5 mg tablet active Take 1 tablet by mouth twice a day Aracely Walker ProAir HFA 90 mcg/actuation HFA aerosol inhaler active as directed four times a day as needed Aracely Walker fluticasone propionate 50 mcg/actuation spray,suspension active in both nostrils as needed Aracely Walker Tylenol 325 mg tablet active as needed Aracely Walker lisinopril 40 mg tablet active Take 1 tablet by mouth once a day Aracely Walker amlodipine 10 mg tablet active Take 1 tablet by mouth once a day Wyatt Hallman MD SOCIAL HISTORY Date Observation Value Provider smoking/tobacco cess ation, patient education and counseling yes Wyatt Hallman MD smoking history, tot al pack/day 1 Wyatt Hallman MD cigarette use yes Wyatt devine MD smoking status Current every day smoker S marco Hallman MD number of grandchildren Wyatt Hallman MD social history E&M S moking History: P atient currently smokes every day. Wyatt Hallman MD social history reviewed E&M felipe alvarezed - no changes required Wyatt Hallman MD smoking history, tot al pack/day 1 Victoria Garcia cigarette use yes Victoria contreras smoking status Current every day smoker R pedro Garcia social history E&M S moking History: P zuly currently smokes every day. Wyatt Hallman MD social history reviewed E&M revi ewed - no changes required Wyatt Hallman MD smoking history, tot al pack/day 1 Cara Stinson cigarette use yes Cara Stinson smoking status Current every day smoker S agueda Stinson INSURANCE PROVIDERS Payer name Policy type / Coverage type [place] [employer] party ID [facility] [facility] ADVANTAGE PLAN 2 (HMO-POS) Medicare [id number] [facility] Medicaid 1 [id number] ADVANCE DIRECTIVES Name Date DISCUSSED - NO DECISION MADE TREATMENT PLAN Date Name Performer [id number],C, H ad Cortizone injections in her right knee with DR. Perez November 24, 2022 N o new cortisone shots. Wyatt Hallman MD [id number],C, 1 ppd T he Patient was reencouraged to stop smoking. Wyatt Hallman MD [id number],C, N eeds to have cardiac workup done. Unclear what her CP sx are from. W bryn alamo for Lexiscan stress test, won;t be able to run on a treadmill March 12, 2022 Negative workup for ischemia normal LV function. At present advised tobacco discontinuation. Wyatt Hallman MD [id number],C, H er updated medication list for this problem includes: Amlodipine 10 Mg Tablet (Amlodipine) ..... Take 1 tablet by mouth once a day Lisinopril 40 Mg Tablet (Lisinopril) ..... Take 1 tablet by mouth once a day BP today: 137/67 P rior BP: 104/67 (03/12/2022) Wyatt Hallman MD [id number],C, H er updated medication list for this problem includes: Rosuvastatin 40 Mg Tablet (Rosuvastatin) ..... Take 1 tablet by mouth every day Wyatt Hallman MD [id number],C,O n Radha. Needs to have lipid panel checked. H er updated medication list for this problem includes: Rosuvastatin 40 Mg Tablet (Rosuvastatin) ..... Take 1 tablet by mouth every day Wyatt Hallman MD [id number],C,D iscussion of benefits for remote patient monitoring took place. Patient gives consent for remote monitoring of physiologic parameters including, but not limited to, weight, blood pressure, pulse oximetry, respiratory flow rate. N otes that BP is variable at home, may need to be better regulated. She is on 2 meds at full doses. H er updated medication list for this problem includes: Amlodipine 10 Mg Tablet (Amlodipine) ..... Take 1 tablet by mouth once a day Lisinopril 40 Mg Tablet (Lisinopril) ..... Take 1 tablet by mouth once a day BP today: 104/67 P rior BP: 131/81 (12/16/2021) Wyatt Hallman MD [id number],C, N eeds to have cardiac workup done. Unclear what her CP sx are from. W bryn [place]amo for Lexiscan stress test, won;t be able to run on a treadmill March 12, 2022 Negative workup for ischemia normal LV function. At present advised tobacco discontinuation. Wyatt Hallman MD [id number],C,H ad Cortizone injections in her right knee with DR. Ana Hallman MD [id number],C,E CHO 12/28/21 1 . Technically difficult study, limited views secondary to poor acoustic windows. Interpretation is based on available limited v iews. There is mild septal hypertrophy without outflow tract obstruction. Normal left ventricular systolic function. Normal l eft ventricular size. There is E to A wave reversal consistent with impaired LV relaxation. Normal E/E` 0.8 Left ventricular e jection fraction is measured at 55 %. 2 . Normal right ventricular size. Normal right ventricular systolic function. 3 . No significant valvular abnormalities. & #13;NUCLEAR STRESS 01/07/22 CONCLUSIONS: 1 . Normal sinus rhythm. Nonspecific ST-T abnormality. 2 . Normal Regadenoson ECG with no ischemic ST or T changes. There is no ECG evidence of myocardial ischemia with v asodilator stress. 3 . Normal left ventricle size. 4 . Left Ventricular Ejection Fraction is 56 % TID: 1. 5 . Normal myocardial perfusion imaging with no evidence of ischemia or scar. Wyatt Hallman MD [id number],S,T he Patient was reencouraged to stop smoking. Wyatt Hallman MD [id number],C,N eeds to have cardiac workup done. Unclear what her CP sx are from. W ill arragne for Lexiscan stress test, won;t be able to run on a treadmill Wyatt Hallman MD [id number],C,Check echo of LVH valvular disease Wyatt Hallman MD Cardiology: E CHO 12/28/21 1 . Technically difficult study, limited views secondary to poor acoustic windows. Interpretation is based on available limited v iews. There is mild septal hypertrophy without outflow tract obstruction. Normal left ventricular systolic function. Normal l eft ventricular size. There is E to A wave reversal consistent with impaired LV relaxation. Normal E/E` 0.8 Left ventricular e jection fraction is measured at 55 %. 2 . Normal right ventricular size. Normal right ventricular systolic function. 3 . No significant valvular abnormalities. Wyatt Hallman MD Cardiology:could be underlying cause of cp H ad Cortizone injections in her right knee with DR. Perez November 24, 2022 N o new cortisone shots. Wyatt Hallman MD Cardiology:stress gr 06/26/24 1 . No evidence of old myocardial infarct or stress-induced ischemia. 2 . Septal hypokinesis with left ventricular ejection fraction calculated at 5 4%. r eviewd with her if she has recurrent cp will need ot consider cath and will need to do femoral since weak radial pulse noted Wyatt Hallman MD Cardiology:This visi t has been a part of the consistent, comprehensive, and ongoing management of the chronic medical condition(s) listed above for the patient. T he Patient was reencouraged to stop smoking. Wyatt Hallman MD Cardiology: H er updated medication list for this problem includes: Rosuvastatin 40 Mg Tablet (Rosuvastatin) ..... Take 1 tablet by mouth every day Wyatt Hallman MD Cardiology:This visi t has been a part of the consistent, comprehensive, and ongoing management of the chronic medical condition(s) listed above for the patient. girish pattersonks at home in the 120s & #13;Her updated medication list for this problem includes: Amlodipine 10 Mg Tablet (Amlodipine) ..... Take 1 tablet by mouth once a day Lisinopril 40 Mg Tablet (Lisinopril) ..... Take 1 tablet by mouth once a day BP today: 113/70 P rior BP: 142/76 (06/24/2023) Wyatt Hallman MD Cardiology:Bloodwork per PCP, I do not have their report. Wyatt Hallman MD Cardiology: N eeds to have cardiac workup done. Unclear what her CP sx are from. W bryn [place] for Lexiscan stress test, won;t be able to run on a treadmill March 12, 2022 N egative workup for ischemia normal LV function. At present advised tobacco discontinuation. June 24, 2023 N o new CP Wyatt Hallman MD Cardiology: E CHO 12/28/21 1 . Technically difficult study, limited views secondary to poor acoustic windows. Interpretation is based on available limited v iews. There is mild septal hypertrophy without outflow tract obstruction. Normal left ventricular systolic function. Normal l eft ventricular size. There is E to A wave reversal consistent with impaired LV relaxation. Normal E/E` 0.8 Left ventricular e jection fraction is measured at 55 %. 2 . Normal right ventricular size. Normal right ventricular systolic function. 3 . No significant valvular abnormalities. NUCLEAR STRESS 01/07/22 CONCLUSIONS: 1 . Normal sinus rhythm. Nonspecific ST-T abnormality. 2 . Normal Regadenoson ECG with no ischemic ST or T changes. There is no ECG evidence of myocardial ischemia with v asodilator stress. 3 . Normal left ventricle size. 4 . Left Ventricular Ejection Fraction is 56 % TID: 1. 5 . Normal myocardial perfusion imaging with no evidence of ischemia or scar. Wyatt Hallman MD Cardiology:Down to h alise ppd. The Patient was reencouraged to stop smoking. C onclusions: T he ankle brachial index is normal bilaterally. There is no evidence of significant arterial o cclusive disease at rest. Wyatt Hallman MD Cardiology:Multiple months worth of BPs reviewed. Well controlled in the 120-140s range. Her updated medication list for this problem includes: Amlodipine 10 Mg Tablet (Amlodipine) ..... Take 1 tablet by mouth once a day Lisinopril 40 Mg Tablet (Lisinopril) ..... Take 1 tablet by mouth once a day BP today: 142/76 P rior BP: 137/67 (11/24/2022) Wyatt Hallman MD Cardiology: H ad Cortizone injections in her right knee with DR. Perez November 24, 2022 N o new cortisone shots. Wyatt Hallman MD Cardiology: 1 ppd T he Patient was reencouraged to stop smoking. Wyatt Hallman MD Cardiology: N eeds to have cardiac workup done. Unclear what her CP sx are from. W bryn [place] for Lexiscan stress test, won;t be able to run on a treadmill March 12, 2022 N egative workup for ischemia normal LV function. At present advised tobacco discontinuation. Wyatt Hallman MD Cardiology: H er updated medication list for this problem includes: Amlodipine 10 Mg Tablet (Amlodipine) ..... Take 1 tablet by mouth once a day Lisinopril 40 Mg Tablet (Lisinopril) ..... Take 1 tablet by mouth once a day BP today: 137/67 P rior BP: 104/67 (03/12/2022) Wyatt Hallman MD Cardiology: H er updated medication list for this problem includes: Rosuvastatin 40 Mg Tablet (Rosuvastatin) ..... Take 1 tablet by mouth every day Wyatt Hallman MD Cardiology:On [place]rest[place] r. Needs to have lipid panel checked. H er updated medication list for this problem includes: Rosuvastatin 40 Mg Tablet (Rosuvastatin) ..... Take 1 tablet by mouth every day Wyatt Hallman MD Cardiology:Discussio n of benefits for remote patient monitoring took place. Patient gives consent for remote monitoring of physiologic parameters including, but not limited to, weight, blood pressure, pulse oximetry, respiratory flow rate. N otes that BP is variable at home, may need to be better regulated. She is on 2 meds at full doses. H er updated medication list for this problem includes: Amlodipine 10 Mg Tablet (Amlodipine) ..... Take 1 tablet by mouth once a day Lisinopril 40 Mg Tablet (Lisinopril) ..... Take 1 tablet by mouth once a day BP today: 104/67 P rior BP: 131/81 (12/16/2021) Wyatt Hallman MD Cardiology: N eeds to have cardiac workup done. Unclear what her CP sx are from. W bryn alamo for Lexiscan stress test, won;t be able to run on a treadmill March 12, 2022 N egative workup for ischemia normal LV function. At present advised tobacco discontinuation. Wyatt Hallman MD Cardiology:Had Corti zone injections in her right knee with DR. Ana Hallman MD Cardiology:ECHO 12/28 1 . Technically difficult study, limited views secondary to poor acoustic windows. Interpretation is based on available limited v iews. There is mild septal hypertrophy without outflow tract obstruction. Normal left ventricular systolic function. Normal l eft ventricular size. There is E to A wave reversal consistent with impaired LV relaxation. Normal E/E` 0.8 Left ventricular e jection fraction is measured at 55 %. 2 . Normal right ventricular size. Normal right ventricular systolic function. 3 . No significant valvular abnormalities. NUCLEAR STRESS 01/07/22 CONCLUSIONS: 1 . Normal sinus rhythm. Nonspecific ST-T abnormality. 2 . Normal Regadenoson ECG with no ischemic ST or T changes. There is no ECG evidence of myocardial ischemia with v asodilator stress. 3 . Normal left ventricle size. 4 . Left Ventricular Ejection Fraction is 56 % TID: 1. 5 . Normal myocardial perfusion imaging with no evidence of ischemia or scar. Wyatt Hallman MD Cardiology:The Patie nt was reencouraged to stop smoking. Wyatt Hallman MD Electrophysiology:Ne eds to have cardiac workup done. Unclear what her CP sx are from. W ill arragne for Lexiscan stress test, won;t be able to run on a treadmill Wyatt Hallman MD Electrophysiology:Check echo of LVH valvular disease Wyatt Hallman MD Date Name Complete Echo CT, Coronary Calcium Score Sleep Study Home CT, Coronary Calcium Score Sleep Study Home Stress Regadenoson Complete Echo HISTORY OF PROCEDURES Procedure Date Procedure Name Provider Procedure Notes S tatus Complex e/m visit add on Wyatt Hallman MD completed EKG Wyatt Hallman MD compl eted EKG Wyatt Hallman MD compl eted EKG Wyatt Hallman MD compl eted EKG Wyatt Hallman MD compl eted EKG Cara Stinson completed
--- OUTSIDE RECORDS SUMMARY | 2024-08-22 10:21 | XMS_ITS ---
Author Organization [facility] Address [address] [facility] [address] [place] [address] Care Team Providers Care Recreation Facility Attendant Name Role Phone RosadoHaileRicky Unavailable [phone] MEDICATIONS Medication SIG (Take, Route, Fr equency, Duration) Notes Start Date End Date Status Farxiga 10 MG 1 tablet Orally Once a day for 90 04/27/2025 Active SOCIAL HISTORY Sex Assigned At : Social History Observation Description Sex Assigned At Female Encounters Encounter Location Date Provider Diagnosis [facility] [address] [facility] [address] [place] [address] 08/01/2024 Ricky Rosado PLAN OF TREATMENT Medication Medication Name Sig Start Date Stop Date Notes Farxiga 10 MG 1 tablet Orally Once a day for 90 08/01/2024 04/27/2025 Next Appt Details Provider Name:Ricky Rosado , 10/05/2024 01:15:00 PM, [address] [facility], [place], [address], Progress Notes * TERESA HENDERSONDOB:1955 ( 69 yo F)Acc No.[id number]:08/01/2024 Patient: TERESA HENDERSON :1955 Age:69 Y Sex:Female Address:[address] [place] [address] * Refills Start Farxiga Tablet, 10 MG, Orally, 90 Tablet, 1 tablet, Once a day, 90, Refills=2 * * Date:
--- OUTSIDE RECORDS SUMMARY | 2024-08-22 10:21 | XMS_ITS ---
Author Organization [facility] Address [address] [place] [address] Care Team Providers Care Steam And Power Superintendent Name Role Phone AlonzoRicky Unavailable [phone] SOCIAL HISTORY Sex Assigned At : Social History Observation Description Sex Assigned At Female PROBLEMS Problem Type ICD Code Onset Dates Problem Status W/U Status Risk SNOMED Code Notes Problem Secondary hyperparathyroidism of renal origin (N25.81) Active confirmed Secondary hyperparathyroidism of renal origin (42442342) Problem Anemia, unspecified (D64.9) Active confirmed Anemia (149958931) Problem Nicotine dependence, unspecified, uncomplicated (F17.200) Active confirmed Tobacco user (693198542) Problem Hypervitaminosis D (E67.3) Active confirmed Hypervitaminosi s D (50126163) Encounters Encounter Location Date Provider Diagnosis [facility] [address] [facility] [address] [place] [address] 08/01/2024 Ricky Rosado Chronic kidney disea se, stage 3a N18.31 ; Essential hypertension I10 ; Renal osteodystrophy N25.0 ; Secondary hyperparathyroidism of renal origin N25.81 ; Obesity, unspecified E66.9 ; 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.22 ; Anemia, unspecified D64.9 ; Nicotine dependence, unspecified, uncomplicated F17.200 and Hypervitaminosis D E67.3 ASSESSMENTS Encounter Date Diagnosis Assessment Notes Treatment Notes Treatment Clinical Notes Section Notes 08/01/2024 Chronic kidney disea se, stage 3a (ICD-10 - N18.31) 08/01/2024 Essential hypertensi on (ICD-10 - I10) 08/01/2024 Renal osteodystrophy (ICD-10 - N25.0) 08/01/2024 Secondary hyperparathyroidism of renal origin (ICD-10 - N25.81) 08/01/2024 Obesity, unspecified (ICD-10 - E66.9) 08/01/2024 Type 2 diabetes mellitus with diabetic chronic kidney disease (ICD-10 - E11.22) 08/01/2024 Anemia, unspecified (ICD-10 - D64.9) 08/01/2024 Nicotine dependence, unspecified, uncomplicated (ICD-10 - F17.200) 08/01/2024 Hypervitaminosis D (ICD-10 - E67.3) PLAN OF TREATMENT Next Appt Details Provider Name:Ricky Alonzo , 10/05/2024 01:15:00 PM, [address] [facility] [address], [place], [place], [facility], Progress Notes * TERESA HENDERSONDOB:1955 ( 69 yo F)Acc No.[id number]:08/01/2024 Progress Notes Patient: TERESA HENDERSON Provider: MD AIMEE, Honorio.Allison.C.P, F.A.S.N. :1955 Age:69 Y Sex:Female Date:08/01/2024 Address:[address] [place] [address] Subjective: * Chief Complaints: * * Medical History: Objective: Assessment: * Assessment: 1. Chronic kidney disease, stage 3a - N18.31 (Primary) 2. Essential hypertension - I10 3. Renal osteodystrophy - N25.0 4. Secondary hyperparathyroidism of renal origin - N25.81 5. Obesity, unspecified - E66.9 6. Type 2 diabetes mellitus with diabetic chronic kidney disease - E11.22 7. Anemia, unspecified - D64.9 8. Nicotine dependence, unspecified, uncomplicated - F17.200 9. Hypervitaminosis D - E67.3 Plan: * Treatment: * Billing Information: * Visit Code: [id number] Office Visit, Est Pt., Level 5. * Procedure Codes: * Sign off status: Pending * Provider: MD AIMEE, Honorio.Allison.C.P, F.A.S.N. Date: 08/01/2024
--- OUTSIDE RECORDS SUMMARY | 2024-08-22 10:21 | XMS_ITS | Clinical Summary ---
Author Organization [facility] Address [address] [place] [address] Care Team Providers Care Tool Machine Setup Operator Name Role Phone Philip Murphy MD Primary Care Provider Source Comments [facility],non-owned Affiliates and Associated Physician Practices is amultiple site organization consisting of ambulatory clinics and hospital sitesin [place], [place], [place] and [place]. This disclosure is being madepursuant to the Care Everywhere program and may not contain all information available regarding this patient. Last updated 18.[facility] [employer] Allergies Active Allergy Reactions Criticality Noted Date Comments Nitrofurantoin Swelling,Rash Medium 06/17/2023 Medications * Be aware that medications may not be up to date on this document. Alwaysverify current medications with the patient. Medication Sig Dispensed Refills Start Date End Date Status albuterol HFA (Proventil; Ventolin; Proair) 108 (90 Base) MCG/ACT inhaler INHALE 1 PUFF BY MOUTH FOUR TIMES DAILY NEEDED 06/10/2023 Active amLODIPine (Norvasc) 5 MG tablet Take 1 (one) tablet by mouth once daily 04/12/2023 Active calcitriol (Rocaltrol) 0.25 MCG capsule Take 1 (one) capsule by mouth 05/20/2023 Active vitamin D, ergocalciferol, (Drisdol) 1.25 MG (39339 UT) capsule Take 1 (one) capsule by mouth 05/26/2023 Active ibuprofen (Motrin) 800 MG tablet TAKE 1 TABLET BY MOUTH EVERY 6-8 HOURS NEEDED 01/21/2023 Active lisinopril (Prinivil; Zestril) 40 MG tablet Take 1 (one) tablet by mouth once daily Active rosuvastatin (Crestor) 40 MG tablet Take 1 (one) tablet by mouth once daily 04/25/2023 Active Active Problems Problem Noted Date Diagnosed Date Mild intermittent asthma 08/22/2023 024 Arthralgia of right knee 06/05/2023 024 Hyperglycemia 06/05/2023 06/17/2023 Dyspnea on exertion 04/13/2023 06/17/2023 Cigarette smoker 03/17/2023 06/17/2023 Peripheral vascular disease 03/17/2023 02/0 06/2023 Varicose veins 03/17/2023 06/17/2023 Nonalcoholic fatty liver 03/16/2023 024 Overview (06/17/2023): fibroscan 06/17/23 LsM 3.6 CAP 239 Technical difficulty in preforming procedure Solitary pulmonary nodule 03/16/20232023 Chronic kidney disease 08/03/2022 Asthma-chronic obstructive p ulmonary disease overlap syndrome 08/03/2022 06/17/2023 Coronary arteriosclerosis 08/03/20222023 Essential hypertension 08/03/2022 4 Osteoarthrosis 03/04/2022 06/17/2023 Hyperlipidemia 11/06/2021 06/17/2023 Family History Medical History Relation Name Comments Gout Father Hypertension Father Hyperlipidemia Mother Diabetes - Type 2 Paternal Grandfather Diabetes - Type 2 Paternal Grandmother Relation Name Status Comments Father Mother Paternal Grandfather Paternal Grandmother Social History Tobacco Use Types Packs/Day Years Used Date Smoking Tobacco: Every Day Cigarettes Smokeless Tobacco: Never Tobacco Cessation:Ready to Q uit: Yes; Counseling Given: Yes Alcohol Use Standard Drinks/Week Comments Never 0 (1 standard drink = 0.6 oz pur e alcohol) Sex and Gender Information Value Date Recorded Sex Assigned at Not on file Gender Identity Not on file Sexual Orientation Not on file Last Filed Vital Signs Vital Sign Reading Time Taken Comments Blood Pressure 128/68 09/16/2023 1:19 PM CDT Pulse 67 09/16/2023 1:19 PM CDT Temperature 36.5 C (97.7 F) 06/17/2023 2:06 PM [facility] Respiratory Rate 18 09/16/2023 1:19 PM CDT Oxygen Saturation 100% 09/16/2023 1:19 PM CDT Inhaled Oxygen Concentration - - Weight 105.7 kg (233 lb) 09/16/2023 1:19 PM CDT Height 162.6 cm (5' 4 ) 09/16/2023 1:19 PM CDT Body Mass Index 39.99 09/16/2023 1:19 PM CDT Plan of Treatment Health Maintenance Due Date Last Done Comments BONE DENSITY TESTING 1955 COLOGUARD (AGES 45-75) - COL ON CA SCREENING 1955 COLON MONITORING 1955 COLONOSCOPY - COLON CA SCREENING 1955 CT COLONOGRAPHY - COLON CA SCREENING 1955 Colorectal Cancer Screening 1955 FIT - COLON CA SCREENING 1955 FLEX SIG - COLON CA SCREENING 1955 MAMMOGRAM 1955 HEPATITIS C SCREENING 07/09/1973 DTAP/TDAP/TD VACCINES (1 - Tdap) 07/13/1974 PNEUMOCOCCAL VACCINE 50+ (1 of 2 - PCV) 07/13/1974 ZOSTER VACCINE (1 of 2) 07/13/2005 Respiratory Syncytial Virus (RSV) Vaccine Pt: or over 60 yrs (1 - Risk 60-74 years 1-dose series) 2015 COVID-19 VACCINE ( - 2023-2 5 season) 2024 INFLUENZA VACCINE (#1) 2024 DEPRESSION SCREENING 05/16/2024 MEDICARE AWV CALENDAR YEAR 2024 SCREENING FOR DIABETES 06/17/2026 06/17/2023 HEPATITIS B VACCINE Aged Out No longe r eligible based on patient's age to complete this topic HIB VACCINE Aged Out No longer eligi ble based on patient's age to complete this topic HPV VACCINE Aged Out No longer eligi ble based on patient's age to complete this topic MENINGOCOCCAL (Group B) VACC INE SHARED DECISION-MAKING Aged Out No longer eligibl e based on patient's age to complete this topic MENINGOCOCCAL GROUPS A/C/Y/W VACCINE Aged Out No longer eligible b ased on patient's age to complete this topic Goals Goal Patient Goal Type Associated Problems Recent Progress Patient-Stated? Author Medication Management General No Mora Macias, RN Note: Expected end date: Ongoing Interventions: Take all medications as prescribed Let your doctor know right away about any changes in your medications Make sure to request a refill of your medication at least one week prior to your last dose Procedures Procedure Name Priority Date/Time Associated Diagnosis Comments COMPREHENSIVE METABOLIC PANEL Routine 06/17/2023 3:57 PM [facility] Elevated liver enzymes from Last 3 Months or Most Recently Relevant to Health Maintenance Results * (ABNORMAL) COMPREHENSIVE METABOLIC PANEL (06/17/2023 3:57 PM [facility]) BUN 29(H) 7 - 26 mg/dL 06/17/2023 4:53 PM [facility] Creatinine 1.22(H) 0.56 - 0.96 mg/dL 06/17/2023 4:53 PM [facility] Sodium 142 136 - 145 mmol/L 06/17/2023 4:53 PM [facility] Potassium 4.6(H) 3.5 - 4.5 mmol/L 06/17/2023 4:53 PM [facility] Chloride 107 98 - 107 mmol/L 06/17/2023 4:53 PM [facility] CO2 26 22 - 29 mmol/L 06/17/2023 4:53 PM [facility] Glucose 102 70 - 115 mg/dL 06/17/2023 4:53 PM [facility] Calcium 10.3(H) 8.4 - 10.2 mg/dL 06/17/2023 4:53 PM [facility] Protein Total 7.7 6.0 - 8.3 g/dL 06/17/2023 4:53 PM [facility] Albumin 3.8 3.4 - 5.0 g/dL 06/17/2023 4:53 PM [facility] Bilirubin Total 0.6 0.2 - 1.2 mg/dL 06/17/2023 4:53 PM [facility] Alkaline Phosphatase 61 40 - 150 U/L 06/17/2023 4:53 PM [facility] ALT 35 5 - 55 U/L 06/17/2023 4:53 PM [facility] AST 22 5 - 34 U/L 06/17/2023 4:53 PM [facility] Anion Gap 9 6 - 16 06/17/2023 4:53 PM [facility] BUN/Creatinine Ratio 24(H) 7 - 23 06/17/2023 4:53 PM [facility] Osmolality Calculated 300(H) 275 - 295 mOsm/kg 06/17/2023 4:53 PM [facility] Albumin/Globulin Ratio 1.0(L) 1.1 - 2.3 06/17/2023 4:53 PM [facility] eGFR by CKD-EPI 49(L) >=90 mL/min/1.7 3 m2 06/17/2023 4:53 PM [facility] Blood BLOOD SPECIMEN / Unknown Lab Venipuncture / Unknown 06/17/2023 3:57 PM [facility] 06/17/2023 4:23 PM [facility] Larissa Link [employer] [facility] - CHEMIS TRY ORDERABLES Performing Organization Address City/State/[facility] Co de Phone Number [facility] [address] [place] [address], [facility] [phone] from Last 3 Months or Most Recently Relevant to Health Maintenance Care Teams Tool Machine Setup Operator Relationship Specialty Start Date End Date Philip Murphy MD [address] [place] [address] PCP - General Internal Medicine 06/17/23
--- NOTE | 2024-08-22 12:19 | WPDPFTINT ---
PFT Procedure Performed PFT Procedure Performed Spirometry with Pre/Post Bronchodilator Plethysmography (Lung Vol) Diffusing Cap (DLCO) Flow Vol Loop PFT Interpretation This is a pulmonary function test with pre and post-bronchodilator spirometry, plethysmography and diffusing capacity. The test was performed and results interpreted in accordance with the 2019 and 2005 ATS/ERS Task Force guidelines respectively using the Global Lung Function Initiative-2012 reference equations. Patient demonstrated good effort and cooperation. Reproducibility criteria were met. The quality of the pre bronchodilator spirometry maneuver was Grade A and post bronchodilator spirometry maneuver was Grade A. Findings: Spirometry: There is decreased maximal expiratory airflow at low lung volumes. The contour the inspiratory flow tracing is normal. The pre bronchodilator FVC is 2.25 L, 78% predicted. The pre bronchodilator FEV1 is 1.54 L, 69% predicted. The pre bronchodilator FEV1: FVC ratio is 68%. The post bronchodilator FVC is 2.63 L, representing a 17% increase. The post bronchodilator FEV1 is 1.80 L, representing a 17% increase. The post bronchodilator FEV1: FVC ratio is 68%. Plethysmography: The total lung capacity is 4.64 L, 91% predicted. The functional residual capacity is 2.74 L, 95% predicted. The residual volume is 2.34 L, 108% predicted. Diffusing capacity: The diffusing capacity unadjusted for hemoglobin and carboxyhemoglobin is 11.3, 55% predicted. The diffusing capacity adjusted for alveolar volume is 3.68, 86% predicted. Impression: There is a moderate obstructive abnormality. There is significant improvement after inhaling a single dose of albuterol. The lung volumes are normal. The diffusing capacity unadjusted for hemoglobin and carboxyhemoglobin is moderately decreased and normalizes when adjusted for alveolar volume. There are no prior studies for comparison
== END 2024-08-22 09:22 | disposition home or self-care (01) ==
LOC: ANHPFT 09:24
PROVIDERS: PCP Internal Medicine; Visit Provider Internal Medicine Pulmonary Disease
DX: J44.9 Chronic obstructive pulmonary disease, unspecified (principal)
CPT/HCPCS: 94060; 94375; 94726; 94729